=== PATIENT | male | born 1945 | race Caucasian/White ===

== ENCOUNTER 2020-05-22 10:11 | Emergency (ER) | payer OTHER, SELFPAY ==
[2020-05-22] VITALS (8 sets, daily range): BP systolic 133–164; BP diastolic 65–84; PULSE 57–75; RESP 16–24; TEMP 36.8; O2SAT 99–100
--- NOTE | ~2020-05-22 | CT_ITS ---
EXAMINATION: CT brain wo con EXAM DATE: 05/22/2020 12:05 INDICATION: Dizziness. Elevated lipase. TECHNIQUE: Spiral CT of the head was performed without contrast. Axial, coronal and sagittal images were reviewed. The dose-length product (DLP) for this examination was 605.33 mGy-cm. The exposure w as tailored according to patient size, and iterative reconstruction (ASIR) was used as additional dos e reduction technique. Comparison is made to prior examination from 01/15/2019. FINDINGS: There is no acute intraparenchymal hemorrhage. No evidence of intraparenchymal brain mass lesion. No evidence of acute infarction. Please note that initial head CT has limited sensitivity f or small or acute infarctions. There is mild periventricular and subcortical hypodensity, nonspecific but probably related to small vessel ischemic disease. There is mild prominence of the sulci and v entricles related to cerebral atrophy. There is intracranial carotid arteriosclerosis. There are n o extra-axial collections. There is no mass effect or midline shift. The orbits are unremarkable. At the vertex just left of midline there is a soft tissue growth along the scalp which appears to be sessile, measuring about 1.2 cm in diameter. This appears new compared to prior exam. Recommend clini berny correlation to evaluate possibility of skin cancer. The visualized sinuses and mastoid air cells are well aerated. IMPRESSION: 1. Interval development of vertex scalp growth; recommend clinical correlation for possible melanoma or squamous cell cancer. 2. Chronic age related findings. Reviewed, dictated and finalized at location A.
--- NOTE | ~2020-05-22 | XR_ITS ---
EXAMINATION: XR chest 1V portable EXAM DATE: 05/22/2020 11:22 INDICATION: Dizziness. Hypertension. TECHNIQUE: Portable AP frontal chest x-ray was obtained. Comparison is made to prior examination from 01/15/2019. FINDINGS: The lungs are clear. There are no pleural effusions. The cardiomediastinal silhouette is within normal limits. There is no pneumothorax suspected. Patient has diffuse idiopathic skeletal h yperostosis (DISH). IMPRESSION: No acute cardiopulmonary findings. Reviewed, dictated and finalized at location A.
--- NOTE | ~2020-05-22 | CT_ITS ---
EXAMINATION: CT abdomen pelvis wo con EXAM DATE: 05/22/2020 12:05 INDICATION: Elevated lipase. TECHNIQUE: Spiral CT of the abdomen and pelvis was performed without contrast. Axial, coronal and s agittal images were reviewed. The dose-length product (DLP) for this examination was 513.40 mGy-cm. The exposure was tailored according to patient size (auto mA exposure control), and iterative recons truction (ASIR) was used as additional dose reduction technique. There is no prior study for compari son. FINDINGS: The liver, spleen, adrenal glands and pancreas are unremarkable. Gallbladder is unremarkab le. No biliary obstruction. There is left inferior calyceal stone measuring 9 mm. There is a right- sided pelvic kidney. There is moderate bilateral renal cortical thinning. No obstructive nephropathy. The prostate is unremarkable. The bladder is unremarkable. There is no retroperitoneal or pelvic lymphadenopathy. There is mild scattered arteriosclerotic disease. The appendix is not positively visualized. There is no pericecal inflammatory change to suggest appe ndicitis. There is extensive descending colonic diverticulosis. There is no adjacent inflammatory ch aureliano to suggest diverticulitis. There is large duodenal diverticulum without adjacent inflammation. There is expected amount of colonic stool. No free intraperitoneal gas. The heart is normal in si ze. There are no pericardial or pleural effusions. The lung bases are unremarkable. There are no o steoblastic or osteolytic lesions identified. IMPRESSION: 1. No acute intra-abdominal findings. 2. Colonic diverticulosis. 3. Left nephrolithiasis. 4. Right pelvic kidney. Reviewed, dictated and finalized at location A.
--- NOTE | 2020-05-22 10:46 | ECG_ITS ---
Measurements Intervals [place] Rate: 63 P: 61 VT: 239 QRS: -28 QRSD: 114 T: 27 QT: 460 QTc: 474 Interpretive Statements SINUS RHYTHM WITH FIRST DEGREE AV BLOCK VENTRICULAR PREMATURE COMPLEXES INTRAVENTRICULAR CONDUCTION DELAY CANNOT RULE OUT SEPTAL INFARCT, AGE INDETERMINATE NONSPECIFIC ST & T-WAVE ABNORMALITY- DIFFUSE LEADS ABNORMAL ECG Electronically Signed On 05-22-2020 16:53:19 CDT by Mynor Hewitt D.O.
[2020-05-22 11:08] LABS: Basophils Absolute Auto 0.1 K/mm3 (0.0-0.1); Basophils Percent Auto 0.9 % (0.2-1.2); Eosinophils Absolute Auto 0.5 K/mm3 (0-0.3); Eosinophils Percent Auto 3.9 % (0-4.4); Hematocrit 40.6 % (42.0-52.0); Immature Granulocyte Percent A 0.8 % (0-0.5); Lymphocytes Absolute Auto 3.43 K/mm3 (0.9-3.2); Lymphocytes Percent Auto 28.4 % (18.3-44.2); Mean Corpuscular HGB Conc 34.5 g/dl (32-36); Mean Corpuscular Hemoglobin 28.9 pg (26-34); Mean Corpuscular Volume 83.9 fl (80-100); Mean Platelet Volume 9.5 fl (7.4-10.4); Monocytes Absolute Auto 0.5 K/mm3 (0.1-0.6); Monocytes Percent Auto 4.4 % (2.6-8.5); Neutrophils Absolute Auto 7.4 K/mm3 (1.3-6.7); Neutrophils Percent Auto 61.6 % (45.5-73.1); Platelet Count Result 324 k/mm3 (150-375); Red Blood Count 4.84 M/mm3 (4.6-6.20); Red Cell Distribution Width 13.4 % (11.5-14.5); White Blood Count 12.1 K/mm3 (4.5-10.0)
[2020-05-22 11:19] LABS: Anion Gap 12 mmol/L (8-16); Blood Urea Nitrogen 42 mg/dL (9-20); Calcium 9.7 mg/dL (8.4-10.2); Carbon Dioxide 24 mmol/L (22-30); Chloride 106 mmol/L (98-107); Estimated CRCL calculation 20 ml/min; Estimated Glomerular Filt Rate 25; Glucose 129 mg/dL (75-110); Potassium 4.2 mmol/L (3.4-5.0); Sodium 142 mmol/L (137-145)
[2020-05-22] MEDS: SODIUM CHLORIDE 0.9% IV 500 ML 999 ML IV CONT (11:24)
[2020-05-22 11:25] LABS: INR 0.9; Partial Thromboplastin Time 28.2 SECONDS (22.3-36.8); Prothrombin Time 12.2 Seconds (11.1-14.7)
[2020-05-22 11:29] LABS: Alanine Aminotransferase 21 U/L (4-50); Albumin Level 4.6 g/dL (3.5-5.1); Alkaline Phosphatase 92 U/L (38-126); Aspartate Amino Transferase 24 U/L (17-59); Bilirubin,Total 0.7 mg/dL (0.2-1.3); Lipase 593 U/L (23-300)
[2020-05-22 11:38] LABS: Troponin I < 0.012 ng/mL (0.000-0.034)
--- NOTE | 2020-05-22 11:58 | PC.NURSE ---
pt to ct at this time per stretcher.
--- NOTE | 2020-05-22 13:49 | ED.DIZZY ---
HPI - Dizziness General Chief Complaint: Dizziness Stated Complaint: dizzy Time Seen by Provider: 05/22/20 10:48 Source: patient and family Mode of arrival: ambulatory Limitations: no limitations History of Present Illness HPI Narrative: Patient is a 74-year-old male who presents to emergency department for evaluation of dizziness that has mild in nature intermittently worsens with certain activities such as standing patient notes he feels slightly off balance symptoms have persisted since yesterday patient denies similar occurrence in the past any injury or trauma or recent illness. On arrival patient in the room in no distress denying any pain Related Data Home Medications Medication Instructions Recorded Confirmed amlodipine 5 mg PO DAILY 05/22/20 aspirin 81 mg PO DAILY 05/22/20 clopidogrel 75 mg PO DAILY 05/22/20 glipizide 5 mg PO DAILY 05/22/20 losartan 50 mg PO DAILY 05/22/20 losartan-hydrochlorothiazide 1 tablet PO DAILY 05/22/20 pravastatin 10 mg PO DAILY 05/22/20 Allergies Allergy/AdvReac Type Severity Reaction Status Date / Time poison felicia extract Allergy Mild RASH Verified 05/22/20 11:23 Iodinated Contrast Media Allergy Unknown Unknown Verified 05/22/20 11:23 iodine Allergy Unknown Unknown Verified 05/22/20 11:23 Review of Systems Review of Systems: All systems reviewed & are unremarkable except as noted in HPI and below PMFSH Family History Family History (Updated 03/16/16 @ 23:19 by DOCTOR UNKNOWN) Father Hypertension Family history of diabetes mellitus in first degree relative Mother Family history of Alzheimer's disease Social History Social History Smoking status: Never smoker Alcohol intake: never Exam Narrative: Exam Narrative: GENERAL: Well-appearing, well-nourished, and in no acute distress. HEAD: Normocephalic, atraumatic. EYES: PERRLA and EOMI. ENT: Nares clear, no rhinorrhea or epistaxis. Mucous membranes moist. Oropharynx without tonsillar hypertrophy exudate or other lesions. Bilateral TMs nonerythematous nonbulging NECK: Supple. No adenopathy or masses. CHEST: Clear to auscultation. No respiratory distress. No wheezes rales or rhonchi HEART: Regular rate and rhythm. No murmur heard. Normal peripheral pulses. ABDOMEN: Soft, nontender, nondistended EXTREMITIES: Normal range of motion. No edema. SKIN: Warm, dry, no rash. NEURO: No focal deficits. Alert and oriented x3. Cranial nerves II through XII grossly intact. Normal speech and gait. Motor and sensory intact and symmetrical in the extremities. Cerebellar intact. PSYCH: Normal mood and affect. Course Course Emergency Course: Patient in the room at this time aware of case findings treatment plan and diagnosis agreeing to follow-up as directed or to return if symptoms worsen or concerns. Patient was able to ambulate without difficulty no high risk changes in the blood work or imaging patient notes he has follow-up on Saturday for the skin lesion seen on CAT scan involving the scalp. Patient felt better after hydration Vital Signs Vital signs: Vital Signs Temperature 98.2 F 05/22/20 10:15 Pulse Rate 70 05/22/20 10:15 Respiratory Rate 16 05/22/20 10:15 Blood Pressure 149/73 H 05/22/20 10:15 Pulse Oximetry 99 05/22/20 10:15 Temperature 98.2 F 05/22/20 10:15 Pulse Rate 75 05/22/20 13:34 Respiratory Rate 17 05/22/20 13:34 Blood Pressure 158/75 H 05/22/20 13:34 Pulse Oximetry 99 05/22/20 13:34 MDM - Dizziness MDM Narrative Medical decision making narrative: Patient in the room in no distress aware of case findings treatment plan and diagnosis agreeing to follow-up as directed for his symptoms unsure as to the etiology of his dizziness felt to be low likelihood for acute coronary syndrome patient is without chest pain patient felt to be unlikely for CVA although he does have risk factors for coronary artery disease and s
== END 2020-05-22 14:14 | disposition home or self-care (01) ==
PROVIDERS: Emergency Medicine Emergency Medical Services; Emergency Provider Emergency Medicine; PCP Family Medicine
DX: R42 Dizziness and giddiness (principal); Z79.82 Long term (current) use of aspirin; Z79.84 Long term (current) use of oral hypoglycemic drugs; I44.0 Atrioventricular block, first degree; I49.3 Ventricular premature depolarization; I45.89 Other specified conduction disorders; R94.31 Abnormal electrocardiogram [ECG] [EKG]; K57.90 Diverticulosis of intestine, part unspecified, without perforation or abscess without bleeding; N20.0 Calculus of kidney
CPT/HCPCS: 36415; 70450; 71045; 74176; 80048; 80076; 83690; 84484; 85025; 85610; 85730; 93005; 96360; 99284; J7040

== ENCOUNTER 2021-02-02 16:19 | Observation (INO) | payer OTHER, SELFPAY ==
--- NOTE | ~2021-02-02 | XR_ITS ---
XR abdomen/kub 1V DATE: 02/02/2021 18:24 INDICATION: Hematuria TECHNIQUE: AP projection, 2 views COMPARISON: 02/02/2021 KUB FINDINGS: No evidence of bowel obstruction. The psoas shadows are intact. No visceromegaly is evident . Possible faint calcified calculus at left ureterovesical junction IMPRESSION: Possible faint calcified calculus at left ureterovesical junction Reviewed, dictated and finalized at Location A. Reviewed, dictated and finalized at location A.
--- NOTE | ~2021-02-02 | XR_ITS ---
XR chest 2V DATE: 02/02/2021 18:24 INDICATION: Hypertension. Congestive heart failure. Diabetes. TECHNIQUE: PA and lateral views COMPARISON: 05/22/2020 portable AP chest 01/15/2019, 10/07/2005 portable AP chest FINDINGS: Normal heart size. Coronary artery calcification. Aortic arch calcification. No hilar or me diastinal enlargement is evident. No pulmonary infiltrate or consolidation, pleural effusion or pulmo nary vascular congestion or pneumothorax. Diffuse idiopathic skeletal hyperostosis of the thoracic spine. Left rotator cuff atrophy. IMPRESSION: No active cardiopulmonary disease Aortic and coronary atherosclerotic calcification Reviewed, dictated and finalized at location A.
--- NOTE | ~2021-02-02 | XR_ITS ---
EXAMINATION: XR retrograde pyelo w/stent LT EXAM DATE: 02/03/2021 11:04 INDICATION: Right-sided retrograde, left-sided stent. Left UVJ stone. TECHNIQUE: Fluoroscopy used during XR retrograde pyelo w/stent LT performed by Dr. Jourdan Seymour MD, urologist. The radiologist Wyatt Ann M.D. dictating this report of the image(s) available wa s not present for the procedure. Total fluoroscopic time of 26 seconds. The DAP for this procedure was 452 radcm2. A total of 45 images sent to PACS from the exam. Cine run(s) available for review. FINDINGS: Right ureter was cannulated, injected. This led to a pelvic kidney. No hydronephrosis or c yst ureteral strictures. Final 2 images demonstrate a left double-J ureteral stent in position. Corre late with procedure note. IMPRESSION: Right pelvic kidney. Left stent in position. Reviewed, dictated and finalized at location B.
--- NOTE | ~2021-02-02 | CT_ITS ---
EXAMINATION: CT abdomen pelvis wo con DATE: 02/02/2021 18:16 INDICATION: Hematuria, dysuria for several weeks TECHNIQUE: Computed tomography (CT) of the abdomen and pelvis was performed without intravenous contr ast. Automated exposure control and iterative reconstruction technique were employed. Exam dose: 397 .55 mGy-cm total exam DLP. COMPARISON: 02/02/2021 KUB 05/22/2020 CT abdomen pelvis noncontrast examination FINDINGS: The lung bases are clear of consolidation. Normal heart size. No pericardial or pleural eff usion. Small sliding hiatal hernia. The liver, gallbladder, bile ducts, pancreas, pancreatic duct and spleen are unremarkable. Normal morphology of the adrenal glands. Approximately 4 x 7 mm left ureteral vesicle junction calculus with prominent left hydroureteronephro sis. Right pelvic kidney. The urinary bladder is unremarkable. There is prostate enlargement and calcifica tions. Abdominal aortic calcification but no aneurysm. No intraperitoneal or retroperitoneal or pelvic mass lesion or adenopathy or ascites. Small bilateral fat-containing inguinal hernias. Numerous diverticula of left and right colon; no CT evidence of diverticulitis. No bowel obstruction, bowel wall thickening, pneumatosis or intraperitoneal free air. Prominent degenerative spurring of the lumbar spine and multilevel degenerative disc disease, most pr onounced at L5-S1. No suspicious osteolytic or osteoblastic lesions are detected. IMPRESSION: 4 x 7 mm left ureterovesical junction calculus with prominent proximal left hydrouretero nephrosis Diverticulosis of the colon Small sliding hiatal hernia Small bilateral fat-containing inguinal hernias Reviewed, dictated and finalized at Location A. Reviewed, dictated and finalized at location A. IMPRESSION: 4 x 7 mm left ureterovesical junction calculus with prominent prox imal left hydroureteronephrosis Diverticulosis of the colon Small sliding hiatal hernia Small bilateral fat-containing inguinal hernias
[2021-02-02 16:35] VITALS: BP 168/79; PULSE 71; RESP 15; TEMP 36.9; O2SAT 97
--- NOTE | 2021-02-02 17:06 | ED.RECABL ---
HPI - Recheck/Abnormal Lab/Rx General Chief Complaint: Recheck/Abnormal Lab/Rx Stated Complaint: kidneys arent working right Time Seen by Provider: 02/02/21 16:39 Source: patient, RN notes reviewed and old records reviewed Mode of arrival: ambulatory Limitations: no limitations History of Present Illness HPI narrative: This is a 75 year old male with history of hypertension, DM, CAD s/p stent, and hyperlipidemia who presents for evaluation of kidney disease. Patient states he had routine labs performed by his PCP this week, and he was called today to be told he needed to come to ER. He states he has known kidney stone. His only complaint is burning with urination at end of his stream that has been occurring for 2 weeks. He denies hematuria, nausea, vomiting, fever, hematuria, abdominal pain, back pain or urinary retention. He does note that his water pill was discontinued 2 weeks ago due to kidney failure. He denies any worsening swelling or shortness of breath. Related Data Home Medications Medication Instructions Recorded Confirmed amlodipine 10 mg PO DAILY 05/22/20 02/02/21 aspirin 81 mg PO DAILY 05/22/20 02/02/21 clopidogrel 75 mg PO DAILY 05/22/20 02/02/21 glipizide 5 mg PO DAILY 05/22/20 02/02/21 pravastatin 10 mg PO DAILY 05/22/20 02/02/21 pyridoxine (vitamin B6) 50 mg PO DAILY 02/02/21 02/02/21 Allergies Allergy/AdvReac Type Severity Reaction Status Date / Time poison felicia extract Allergy Mild RASH Verified 02/02/21 16:38 Iodinated Contrast Media Allergy Unknown Unknown Verified 02/02/21 16:38 iodine Allergy Unknown Unknown Verified 02/02/21 16:38 Review of Systems Review of Systems: All systems reviewed & are unremarkable except as noted in HPI and below PMFSH Past Medical History Medical History (Updated 02/02/21 @ 20:21 by Lisa Sanches MD) CAD (coronary artery disease) Chronic kidney disease Diabetes mellitus Hyperlipidemia Hypertension Surgical History Surgical History (Updated 02/02/21 @ 17:11 by Lisa Sanches MD) History of appendectomy History of coronary artery stent placement Family History Family History (Updated 03/16/16 @ 23:19 by DOCTOR UNKNOWN) Father Hypertension Family history of diabetes mellitus in first degree relative Mother Family history of Alzheimer's disease Social History Social History Smoking status: Former smoker Tobacco type: pipe Additional smoking assessment comments: occasional pipe smoking when pt was around 19 years old, no current use Alcohol intake: never Substance use: never Gender identity (if verbalized by the patient): Male Spiritual care concerns: No Exam Narrative: Exam Narrative: GENERAL: Well-appearing, well-nourished, and in no acute distress. HEAD: Normocephalic, atraumatic EYES: PERRLA and EOMI, conjunctiva clear without discharge THROAT:Mucous membranes moist, Oropharynx normal without erythema, exudate, peritonsillar swelling or fluctuance NECK: Supple, without lymphadenopathy or mass RESPIRATORY: No respiratory distress, Airway patent, Respirations non-labored, Clear to auscultation without rales, rhonchi or wheeze HEART: Regular rate and rhythm. No murmur heard. Normal peripheral pulses. ABDOMEN: Soft, nontender, nondistended, normal active bowel sounds. No masses. No rebound or guarding, No organomegaly. EXTREMITIES: No edema, normal strength with full range of motion. SKIN: Warm, dry, normal color without rash NEURO: Alert and oriented x3. CN 2-12 grossly intact. No focal deficits. PSYCH: Normal mood and affect. Const: General: alert Course Reevaluation(s) Reevaluation #1: I discussed wit patient that he will be admitted due to having obstructing ureteral stone with worsening kidney function Date: 02/02/21 Time: 20:20 Consultations Consultation #1: I discussed case with DR. Dillon with urology. He agrees to consult on pat
[2021-02-02 17:07] LABS: Basophils Absolute Auto 0.1 K/mm3 (0.0-0.1); Basophils Percent Auto 0.7 % (0.2-1.2); Eosinophils Absolute Auto 0.2 K/mm3 (0-0.3); Eosinophils Percent Auto 2.3 % (0-4.4); Hematocrit 33.7 % (42.0-52.0); Hemoglobin 11.1 g/dL (14.0-18.0); Immature Granulocyte Absolute 0.12 K/mm3 (0.00-0.031); Immature Granulocyte Percent A 1.2 % (0-0.5); Lymphocytes Absolute Auto 2.27 K/mm3 (0.9-3.2); Mean Corpuscular HGB Conc 32.9 g/dl (32-36); Mean Corpuscular Hemoglobin 27.5 pg (26-34); Mean Corpuscular Volume 83.6 fl (80-100); Monocytes Absolute Auto 0.6 K/mm3 (0.1-0.6); Monocytes Percent Auto 5.8 % (2.6-8.5); Neutrophils Absolute Auto 6.6 K/mm3 (1.3-6.7); Platelet Count Result 347 k/mm3 (150-375); Red Blood Count 4.03 M/mm3 (4.6-6.20); Red Cell Distribution Width 13.4 % (11.5-14.5); White Blood Count 9.9 K/mm3 (4.5-10.0)
[2021-02-02 17:17] LABS: Alanine Aminotransferase 13 U/L (4-50); Albumin Level 3.9 g/dL (3.5-5.1); Alkaline Phosphatase 72 U/L (38-126); Anion Gap 12 mmol/L (8-16); Aspartate Amino Transferase 24 U/L (17-59); Bilirubin,Total 0.3 mg/dL (0.2-1.3); Blood Urea Nitrogen 47 mg/dL (9-20); Calcium 8.7 mg/dL (8.4-10.2); Carbon Dioxide 17 mmol/L (22-30); Chloride 110 mmol/L (98-107); Estimated CRCL calculation 13 ml/min; Estimated Glomerular Filt Rate 15; Glucose 144 mg/dL (75-110); Potassium 3.8 mmol/L (3.4-5.0); Sodium 139 mmol/L (137-145)
[2021-02-02 17:35] LABS: Add Urine Microscopic? YES; Appearance Urine Clear (Clear); Bacteria Urine Trace /hpf; Bilirubin Urine Negative (Negative); Blood Urine 2+ (Negative); Color Urine Straw (Yellow); Glucose Urine UA 1+ mg/dL (Negative); Ketones Urine Negative (Negative); Leukocyte Esterase Ur 2+ LEU/UL (Negative); Mucus Urine Rare /lpf; Nitrate Urine Negative (Negative); Protein Urine 3+ mg/dL (Negative); Squamous Epithelial Cell Urine Rare /hpf (Few); Urobilinogen Urine Negative mg/dL (<2.0); WBC Urine 21-30 /hpf
[2021-02-02] MEDS: SODIUM CHLORIDE 0.9% IV 500 ML 999 ML IV CONT (17:56)
[2021-02-02 18:08] LABS: Alveolar/Arterial O2 Gradient 22.6 mmHg; Base Excess ABG -5.3 mEq/l (+/-2.0); Carboxyhemoglobin 0.3 % THb (0-2.0); Fractional Inspired Oxygen 21 %; HCO3 ABG 16.9 mEq/l (22.0-26.0); Methemoglobin ABG 0.2 %THb (0-1.5); Oxygen Content ABG 15.6 %vol (16.0-22.0); Oxygen Saturation ABG 97.9 % (95.0-100.0); Oxyhemoglobin 96.5 % THb (90.0-100.0); PO2 ABG 98.6 mmHg (80.0-100.0); Total Hemoglobin 11.4 g/dL (12.0-18.0); pH ABG 7.469 (7.350-7.450)
[2021-02-02 18:10] LABS: Device ROOM AIR; PCO2 ABG 23.8 mmHg (35.0-45.0); Site Drawn LEFT BRACHIAL
--- NOTE | 2021-02-02 18:10 | PC.NURSE ---
Pt to CT.
[2021-02-02 18:39] VITALS: BP 160/71; PULSE 72; RESP 15; O2SAT 99
[2021-02-02 20:17] VITALS: BP 157/71; PULSE 66; RESP 16; TEMP 36.9; O2SAT 99
[2021-02-02] MEDS: TAMSULOSIN HCL 0.4 MG CAPSULE PO (20:19)
[2021-02-02 21:14] VITALS: BP 170/72; PULSE 70; RESP 18; O2SAT 98
[2021-02-02 22:13] VITALS: BP 175/89; PULSE 87; RESP 16; O2SAT 100
[2021-02-02 22:18] VITALS: BP 177/64; PULSE 72; RESP 18; TEMP 36.6; O2SAT 100; BMI 25.5
--- NOTE | 2021-02-02 22:40 | PC.NURSE ---
This patient, Dayron Moser, was admitted to [facility] Surg Room 321-01. Patient/family oriented to hospital policies and general routines including ID bracelet, bed and alarms, visiting hours, pain management, procedures, bathroom and other care routines, personal items, smoking policy, room service/diet, and visiting hours. Information on how to activate the Rapid Response Team has been discussed. Patient/Family are encouraged to report perceived risks to care and to ask questions if they do not understand what they are told or what they should do.
[2021-02-02] MEDS: SODIUM CHLORIDE 0.9% IV 1,000 ML 75 ML IV CONT (23:05)
[2021-02-03] VITALS (12 sets, daily range): BP systolic 110–161; BP diastolic 58–67; PULSE 60–78; RESP 16–20; TEMP 36.4–37; O2SAT 98–100
--- NOTE | 2021-02-03 06:36 | PM.IMHP ---
H&P: HPI History of Present Illness Date/Time: 02/03/21 05:25 Chief Complaint: Kidneys not working right Narrative: 75-year-old male with past medical history of chronic kidney disease, diabetes, hypertension who presented to the ER after he had routine labs performed earlier in the week that demonstrated worsening kidney function. The patient denies any difficulty with urination. He has noticed a little bit dysuria at the end of his urinary stream over the last 3 or 4 days. He has not had any fevers or chills. His urine has not been darker. He denies any hematuria. He does have a distant history of kidney stones that he passed on his own. He has not had any flank pain. He denies any fevers or chills. He has to get up to urinate approximately 2 times a night at most. He denies any difficulty starting or stopping his urinary stream. He has had a good appetite. He has not been taking any NSAIDs. His hydrochlorothiazide was discontinued 2 weeks ago due to his kidney function. He denies any worsening shortness of breath. He has been having any increased swelling. He denies any chest pain. Review of Systems Review of Systems: Narrative: 12 systems were reviewed with pertinent positives and negatives per HPI. Except as documented in the HPI, all other systems were reviewed and are negative. [facility] Past Medical History Medical History (Updated 02/03/21 @ 06:49 by Radha Pardo DO) CAD (coronary artery disease) Cataracts, both eyes Maturing Chronic kidney disease, stage 4 (severe) Baseline creatinine around 2.5 Diabetes mellitus Most recent hemoglobin A1c between 6 and 7 according to patient report Hyperlipidemia Hypertension Surgical History Surgical History (Updated 02/03/21 @ 06:47 by Radha Pardo DO) History of coronary artery stent placement 6 stents placed in 2004 3 stents placed in [address] Michael Rodrigues History of tonsillectomy and adenoidectomy Family History Family History (Updated 03/16/16 @ 23:19 by DOCTOR UNKNOWN) Father Hypertension Family history of diabetes mellitus in first degree relative Mother Family history of Alzheimer's disease Social History Social History Smoking status: Former smoker Tobacco type: pipe Additional smoking assessment comments: occasional pipe smoking when pt was around 19 years old, no current use Alcohol intake: never Substance use: never Gender identity (if verbalized by the patient): Male Spiritual care concerns: No Meds Home Medications and Allergies Home Medications Medication Instructions Recorded Confirmed Type amlodipine 10 mg PO DAILY 05/22/20 02/02/21 History aspirin 81 mg PO DAILY 05/22/20 02/02/21 History clopidogrel 75 mg PO DAILY 05/22/20 02/02/21 History glipizide 5 mg PO DAILY 05/22/20 02/02/21 History pravastatin 10 mg PO DAILY 05/22/20 02/02/21 History pyridoxine (vitamin B6) 50 mg PO DAILY 02/02/21 02/02/21 History Allergies Allergy/AdvReac Type Severity Reaction Status Date / Time poison felicia extract Allergy Mild RASH Verified 02/02/21 16:38 Iodinated Contrast Media Allergy Unknown Unknown Verified 02/02/21 16:38 iodine Allergy Unknown Unknown Verified 02/02/21 16:38 Vital Signs Vital Signs - 24 hr 02/02/21 16:35 02/02/21 18:39 02/02/21 20:17 Temperature 98.5 F 98.4 F Pulse Rate 71 72 66 Respiratory Rate 15 15 16 Blood Pressure 168/79 H 160/71 H 157/71 H Pulse Oximetry 97 99 99 02/02/21 21:14 02/02/21 22:13 02/02/21 22:18 Temperature 97.9 F Pulse Rate 70 87 72 Respiratory Rate 18 16 18 Blood Pressure 170/72 H 175/89 H 177/64 H Pulse Oximetry 98 100 100 02/03/21 05:32 Temperature 98.4 F Pulse Rate 78 Respiratory Rate 18 Blood Pressure 151/66 H Pulse Oximetry 100 H&P: Results Labs Labs: Laboratory Tests 02/03/21 06:09 02/02/21 02/02/21 02/02/21 17:00 17:00 17:17 WBC 9.9 RBC 4.03 L
[2021-02-03 06:41] LABS: Basophils Absolute Auto 0.1 K/mm3 (0.0-0.1); Basophils Percent Auto 0.6 % (0.2-1.2); Eosinophils Absolute Auto 0.3 K/mm3 (0-0.3); Eosinophils Percent Auto 3.2 % (0-4.4); Hemoglobin 10.8 g/dL (14.0-18.0); Immature Granulocyte Absolute 0.08 K/mm3 (0.00-0.031); Immature Granulocyte Percent A 0.8 % (0-0.5); Lymphocytes Absolute Auto 2.62 K/mm3 (0.9-3.2); Lymphocytes Percent Auto 26.4 % (18.3-44.2); Mean Corpuscular HGB Conc 32.7 g/dl (32-36); Mean Corpuscular Hemoglobin 27.3 pg (26-34); Mean Corpuscular Volume 83.3 fl (80-100); Mean Platelet Volume 8.8 fl (7.4-10.4); Monocytes Absolute Auto 0.5 K/mm3 (0.1-0.6); Neutrophils Absolute Auto 6.4 K/mm3 (1.3-6.7); Platelet Count Result 331 k/mm3 (150-375); Red Blood Count 3.96 M/mm3 (4.6-6.20); Red Cell Distribution Width 13.2 % (11.5-14.5); White Blood Count 9.9 K/mm3 (4.5-10.0)
[2021-02-03 06:59] LABS: Alanine Aminotransferase 12 U/L (4-50); Albumin Level 3.6 g/dL (3.5-5.1); Alkaline Phosphatase 72 U/L (38-126); Anion Gap 11 mmol/L (8-16); Aspartate Amino Transferase 20 U/L (17-59); Bilirubin,Total 0.3 mg/dL (0.2-1.3); Blood Urea Nitrogen 39 mg/dL (9-20); Calcium 8.7 mg/dL (8.4-10.2); Carbon Dioxide 19 mmol/L (22-30); Chloride 114 mmol/L (98-107); Estimated CRCL calculation 14 ml/min; Estimated Glomerular Filt Rate 17; Glucose 101 mg/dL (75-110); Potassium 3.8 mmol/L (3.4-5.0); Sodium 144 mmol/L (137-145)
--- NOTE | 2021-02-03 07:27 | WPDURCON ---
Assessment and Plan Assessment and plan (1) Pelvic kidney: Code(s): Q63.2 - Ectopic kidney Status: Acute (2) Acute kidney injury superimposed on CKD: Code(s): N17.9 - Acute kidney failure, unspecified; N18.9 - Chronic kidney disease, unspecified Status: Acute (3) Calculus of distal left ureter: Code(s): N20.1 - Calculus of ureter Status: Acute Assessment and Plan: Left ureteroscopy with laser lithotripsy, stone extraction and stent placement. I will also do a right retrograde pyelogram at that time to ensure no pathology with his right pelvic kidney/collecting system and ureter. Urology Consult Note HPI Date Seen: 02/03/21 Requesting Physician: Radha Pardo DO Primary Care Provider: Balwinder Peter, DO Consult Narrative Narrative: Dayron Moser is a 75 year old male without prior significant urological history without history urolithiasis. He presents to the emergency department after having been found to have worsening kidney function stone outside lab. He has had mild dysuria but no significant renal colic. He denies fevers chills or gross hematuria. Review of Systems Cardiovascular: Cardiovascular: Denies chest pain, Denies lightheadedness, Denies palpitations and Denies dyspnea Respiratory: Respiratory: Denies dyspnea Gastrointestinal: Gastrointestinal: Denies diarrhea, Denies nausea and Denies vomiting Genitourinary: Genitourinary: Denies hematuria and Denies dysuria Endocrine: Endocrine: Denies palpitations PMFSH Past Medical History Medical History CAD (coronary artery disease) Cataracts, both eyes Maturing Chronic kidney disease, stage 4 (severe) Baseline creatinine around 2.5 Diabetes mellitus Most recent hemoglobin A1c between 6 and 7 according to patient report Diabetic peripheral neuropathy Stocking and glove Hyperlipidemia Hypertension Squamous cell carcinoma of scalp Surgical History Surgical History History of coronary artery stent placement 6 stents placed in 2004 3 stents placed in [address] Michael Rodrigues History of tonsillectomy and adenoidectomy Family History Family History Father Hypertension Family history of diabetes mellitus in first degree relative Mother Family history of Alzheimer's disease Social History Social History Social History: Patient is but lives with his long-term girlfriend. He has a son who is 50 years old and a daughter who is 53 years old. He keeps busy by bowling. Code status: Full code Surrogate decision maker: Juliana (girlfriend) Smoking status: Former smoker Tobacco type: pipe Additional smoking assessment comments: occasional pipe smoking when pt was around 19 years old, no current use Alcohol intake: never Substance use: never Gender identity (if verbalized by the patient): Male Spiritual care concerns: No Meds Home Medications and Allergies Home Medications Medication Instructions Recorded Confirmed Type amlodipine 10 mg PO DAILY 05/22/20 02/02/21 History aspirin 81 mg PO DAILY 05/22/20 02/02/21 History clopidogrel 75 mg PO DAILY 05/22/20 02/02/21 History glipizide 5 mg PO DAILY 05/22/20 02/02/21 History pravastatin 10 mg PO DAILY 05/22/20 02/02/21 History pyridoxine (vitamin B6) 50 mg PO DAILY 02/02/21 02/02/21 History Allergies Allergy/AdvReac Type Severity Reaction Status Date / Time poison felicia extract Allergy Mild RASH Verified 02/02/21 16:38 Iodinated Contrast Media Allergy Unknown Unknown Verified 02/02/21 16:38 iodine Allergy Unknown Unknown Verified 02/02/21 16:38 Vital Signs Vital Signs - 24 hr 02/02/21 16:35 02/02/21 18:39 02/02/21 20:17 Temperature 98.5 F 98.4 F Pulse Rate 7
[2021-02-03] MEDS: amLODIPine BESYLATE 5 MG TABLET 10 MG PO (08:14)
[2021-02-03] MEDS: LACTATED RINGERS 1,000 ML 30 ML IV CONT ×2 (09:10→09:39)
--- NOTE | 2021-02-03 09:15 | PC.NURSE ---
to OR per stretcher. watch and cell phone locked in cabinet in room per patient request
--- NOTE | 2021-02-03 09:37 | WPDANESEPPF ---
Anes - Initial Pre Proc Eval Procedure: Operation Date: 02/03/21 14:15 Proposed Procedures p Cystoscopy,Left Ureteroscopy,Right Retrograde Pyelogram,Left Stone Extraction,Possible Holmium Laser,Possible Stent Placement - Jourdan Seymour MD Date/Time: 02/03/21 09:37 Surgeon: Radha Pardo DO Pre Op Diagnosis: Acute on Chronic Renal Failure,Left Obstructive Ur Patient Data Age: 75 Gender: M Height: 1.65 m Weight: 69.6 kg Last Vital Signs Temp 36.9 C 02/03/21 05:32 Pulse 78 02/03/21 05:32 Resp 18 02/03/21 05:32 BP 151/66 H 02/03/21 05:32 Pulse Ox 100 02/03/21 05:32 Allergies Allergy/AdvReac Type Severity Reaction Status Date / Time poison felicia extract Allergy Mild RASH Verified 02/02/21 16:38 Iodinated Contrast Media Allergy Unknown Unknown Verified 02/02/21 16:38 iodine Allergy Unknown Unknown Verified 02/02/21 16:38 Home Medications Medication Instructions Recorded Confirmed Type amlodipine 10 mg PO DAILY 05/22/20 02/02/21 History aspirin 81 mg PO DAILY 05/22/20 02/02/21 History clopidogrel 75 mg PO DAILY 05/22/20 02/02/21 History glipizide 5 mg PO DAILY 05/22/20 02/02/21 History pravastatin 10 mg PO DAILY 05/22/20 02/02/21 History pyridoxine (vitamin B6) 50 mg PO DAILY 02/02/21 02/02/21 History Laboratory Tests 02/02/21 02/02/21 02/02/21 17:00 17:00 17:17 WBC 9.9 K/mm3 K/mm3 (4.5-10.0) RBC 4.03 M/mm3 L M/mm3 (4.6-6.20) Hgb 11.1 g/dL L g/dL (14.0-18.0) Hct 33.7 % L % (42.0-52.0) MCV 83.6 fl fl (80-100) MCH 27.5 pg pg (26-34) MCHC 32.9 g/dl g/dl (32-36) RDW 13.4 % % (11.5-14.5) Plt Count 347 k/mm3 k/mm3 (150-375) MPV 9.0 fl fl (7.4-10.4) Immature Gran % (Auto) 1.2 % H % (0-0.5) Neut % (Auto) 67.0 % % (45.5-73.1) Lymph % (Auto) 23.0 % % (18.3-44.2) [place] % (Auto) 5.8 % % (2.6-8.5) Eos % (Auto) 2.3 % % (0-4.4) Baso % (Auto) 0.7 % % (0.2-1.2) Lymph # (Auto) 2.27 K/mm3 K/mm3 (0.9-3.2) [place] # (Auto) 0.6 K/mm3 K/mm3 (0.1-0.6) Eos # (Auto) 0.2 K/mm3 K/mm3 (0-0.3) Baso # (Auto) 0.1 K/mm3 K/mm3 (0.0-0.1) Abs Immat Gran (auto) 0.12 K/mm3 H K/mm3 (0.00-0.031) Absolute Neuts (auto) 6.6 K/mm3 K/mm3 (1.3-6.7) Absolute Nucleated RBC 0.0 K/mm3 K/mm3 (0.0-0.012) Nucleated RBC % 0.0 % % (0.0-0.2) Puncture Site ABG pH ABG pCO2 ABG pO2 ABG PO2/FiO2 Ratio ABG HCO3 ABG O2 Saturation ABG O2 Content ABG Base Excess A-a Gradient Oxyhemoglobin Carboxyhemoglobin Methemoglobin Reduced Hemoglobin Total Hemoglobin O2 Delivery Device O2 Liters/Min FiO2 Sodium 139 mmol/L mmol/L (137-145) Potassium 3.8 mmol/L mmol/L (3.4-5.0) Chloride 110 mmol/L H mmol/L (98-107) Carbon Dioxide 17 mmol/L L mmol/L (22-30) Anion Gap 12 mmol/L mmol/L (8-16) BUN 47 mg/dL H mg/dL (9-20) Creatinine 3.90 mg/dL H mg/dL (0.7-1.3) Estim Creat Clear Calc 13 ml/min ml/min Estimated GFR 15 L (59 - ) Glucose 144 mg/dL H mg/dL (75-110) Calcium 8.7 mg/dL mg/dL (8.4-10.2) Total Bilirubin 0.3 mg/dL mg/dL (0.2-1.3) AST 24 U/L U/L (17-59) ALT 13 U/L U/L (4-50) Alkaline Phosphatase 72 U/L U/L (38-126) Total Protein 7.0 g/dL g/dL (6.3-8.2) Albumin 3.9 g/dL g/dL (3.5-5.1) Urine Color Straw (Yellow) Urine Appearance Clear (Clear) Urine pH 6.0 (5.0-9.0) Ur Specific [place] 1.010 (1.001-1.035) Urine P
[2021-02-03 09:39] LABS: Glucose Point of Care 108 mg/dl (65-105)
--- NOTE | 2021-02-03 10:18 | SUR.PREOP ---
1015 pt informed of delay in procedure,also called eleuterio rn floor nurse and informed of delay and pt to stay in preop.
--- NOTE | 2021-02-03 10:25 | WPDHPUPDATE1 ---
History and Physical Update Update Date/Time: 02/03/21 10:25 History and Physical has been reviewed, including an updated exam of the patient. There are NO changes in the patient's condition. Risks, benefits, and alternatives have been discussed and questions answered. Patient agrees to proceed with procedure.
--- NOTE | 2021-02-03 11:01 | W.PM.PROC2 ---
Procedure Note - Detailed Date of Procedure 02/03/21 Pre-op Diagnosis Acute on Chronic Renal Failure, Left Ureteral stone Post-op Diagnosis same Procedure Performed 1. Cystoscopy with right retrograde pyelography 2. Left ureteroscopy with stone extraction and left ureteral stent placement Surgeon Jourdan Seymour MD Anesthesia general Indications Left ureteral stone, RODRIGUE Findings 1. Normal right RPG 2. 7mm left UVJ stone Description of Procedure Patient is brought to the operative suite where he has prepped draped in routine sterile fashion while in a dorsal lithotomy position after the uneventful induction of a general anesthetic. Cystoscopy is undertaken with the 21 F rigid cystoscope. There is no urethral stricture. He has minimal prostatic hyperplasia from [place] is age. The bladder showed slight trabeculation. There is no intravesical foreign body neoplasm. Has an orthotopic ureteral orifice bilaterally. An 8 F bulb tip catheter was used to obtain a right retrograde pyelogram. This shows a pelvic kidney but without apparent obstruction or filling defect to the collecting system. On the left, his 7 mm stone can be seen extruding from the left ureterovesical junction. Was actually able to remove it base simple using a grasping forceps through the cystoscope. I did perform left ureteroscopy to confirm that there was no additional fragments left. Placed a 4.8 F left ureteral stent over a guidewire. The proximal coil of the stent was positioned in the renal pelvis and distal coil in bladder. Scopes wires removed after emptying the patient's bladder. He was taken recovery room good condition Estimated Blood Loss 0 Drains Yes (4.8F left ureteral stent) Packing No Pathology yes (Left ureteral stone) Complications No immediate complications Condition stable Disposition PACU
[2021-02-03 11:20] LABS: Glucose Point of Care 99 mg/dl (65-105)
[2021-02-03] MEDS: PYRIDOXINE HCL 50 MG TABLET PO (12:59)
[2021-02-03] MEDS: ASPIRIN 81 MG CHEWABLE TABLET PO (12:59)
[2021-02-03] MEDS: CLOPIDOGREL BISULFATE 75 MG TABLET PO (12:59)
[2021-02-03] MEDS: PRAVASTATIN SODIUM 10 MG TABLET PO (12:59)
[2021-02-03] MEDS: SODIUM CHLORIDE 0.9% IV 1,000 ML 75 ML IV CONT (13:02)
--- NOTE | 2021-02-03 14:23 | PM.IMPN ---
Progress Note: A&P Assessment and Plan (1) Acute kidney injury superimposed on CKD: Code(s): N17.9 - Acute kidney failure, unspecified; N18.9 - Chronic kidney disease, unspecified Status: Acute Assessment and Plan: Patient presented to ED for evaluation of elevated creatinine on outpatient labs. Cr. 3.9 on arrival improved to 3.6 today. Suspect related to obstructive uropathy, see below. Continue gentle IV fluids, trend renal function and electrolytes daily. Monitor urine output. I am hopeful his Cr will trend down now that the obstruction has been relieved. Anticipate discharge in the next 1-2 days. (2) Calculus of distal left ureter: Code(s): N20.1 - Calculus of ureter Status: Acute Assessment and Plan: Imaging on arrival demonstrated a stone at the left ureterovesical junction with prominent proximal left hydroureteronephrosis. He was evaluated by urology - appreciate input. He is now POD#0 s/p cystoscopy with left ureteral stent placement by Dr. Seymour. (3) Bacteriuria with pyuria: Code(s): R82.71 - Bacteriuria; R82.81 - Pyuria Status: Acute Assessment and Plan: Abnormal urinalysis in the setting of a ureteral stone. Continue empiric IV ceftriaxone with urine culture pending. (4) Diabetes mellitus: Qualifiers: Diabetes mellitus type: type 2 Diabetes mellitus rn long term care insulin use: without group home use Diabetes mellitus complication status: without complication Qualified Code(s): E11.9 - Type 2 diabetes mellitus without complications Code(s): E11.9 - Type 2 diabetes mellitus without complications Status: Chronic Assessment and Plan: Glipizide held due to renal function. Blood sugars are appropriate today. Continue to monitor with accu-cheks and adjust treatment as needed, cover with SSI. (5) CAD (coronary artery disease): Qualifiers: Coronary Disease-Associated Artery/Lesion type: [place] artery [place] vs. transplanted heart: [place] heart Associated angina: without angina Qualified Code(s): I25.10 - Atherosclerotic heart disease of [place] coronary artery without angina pectoris Code(s): I25.10 - Atherosclerotic heart disease of [place] coronary artery without angina pectoris Status: Chronic Assessment and Plan: Stable, no chest pain. Patient describes 9 coronary stents placed between [id number]. Continue plavix, ASA, statin therapy. Subjective Date/time seen: 02/03/21 1230 Interval history: Mr. Moser is a very pleasant 75yo M admitted for acute on chronic renal failure and an obstructing left ureteral stone. He is seen after just returning from cystoscopy with stent placement. He reports feeling well. He only presented to the hospital at the instruction of PCP due to reduced renal function noted on outpatient labs. He reports some dysuria over the last few days but otherwise offers no complaints. Denies chest pain, shortness of breath, abdominal pain, nausea or vomiting. Review of Systems Review of Systems: All systems reviewed & are unremarkable except as noted in HPI and below Exam Narrative: Exam Narrative: General: Male resting comfortably sitting up in bed in no acute distress. HEENT: Normocephalic, EOMI, oral mucosa moist. Cardiovascular: Rate and rhythm are regular. Respiratory: Lungs clear to auscultation bilaterally. Respirations even and non-labored. Tolerating room air. Abdomen: Soft, non-tender, non-distended, bowel sounds present. Extremities: Peripheral pulses intact. No edema or pain to palpation. Neuro: Awake and alert; answering all questions appropriately. No focal neurological deficits. Speech is clear. Objective Data Vital Signs Vital Signs: Last Vital Signs
[2021-02-03 18:00] LABS: Glucose Point of Care 142 mg/dl (65-105)
[2021-02-03 23:03] LABS: Glucose Point of Care 139 mg/dl (65-105)
[2021-02-04 05:37] VITALS: BP 162/64; PULSE 71; RESP 18; TEMP 36.9; O2SAT 98
[2021-02-04] MEDS: SODIUM CHLORIDE 0.9% IV 1,000 ML 75 ML IV CONT (05:53)
[2021-02-04 07:09] LABS: Basophils Percent Auto 0.4 % (0.2-1.2); Eosinophils Absolute Auto 0.2 K/mm3 (0-0.3); Eosinophils Percent Auto 2.2 % (0-4.4); Hematocrit 34.5 % (42.0-52.0); Hemoglobin 11.1 g/dL (14.0-18.0); Immature Granulocyte Absolute 0.07 K/mm3 (0.00-0.031); Immature Granulocyte Percent A 0.7 % (0-0.5); Lymphocytes Absolute Auto 2.19 K/mm3 (0.9-3.2); Lymphocytes Percent Auto 20.7 % (18.3-44.2); Mean Corpuscular HGB Conc 32.2 g/dl (32-36); Mean Corpuscular Volume 83.9 fl (80-100); Monocytes Absolute Auto 0.6 K/mm3 (0.1-0.6); Monocytes Percent Auto 5.7 % (2.6-8.5); Neutrophils Absolute Auto 7.4 K/mm3 (1.3-6.7); Neutrophils Percent Auto 70.3 % (45.5-73.1); Platelet Count Result 339 k/mm3 (150-375); Red Blood Count 4.11 M/mm3 (4.6-6.20); Red Cell Distribution Width 13.2 % (11.5-14.5); White Blood Count 10.6 K/mm3 (4.5-10.0)
[2021-02-04 07:31] LABS: Anion Gap 11 mmol/L (8-16); Blood Urea Nitrogen 39 mg/dL (9-20); Calcium 8.4 mg/dL (8.4-10.2); Carbon Dioxide 18 mmol/L (22-30); Chloride 113 mmol/L (98-107); Estimated CRCL calculation 15 ml/min; Estimated Glomerular Filt Rate 18; Glucose 115 mg/dL (75-110); Potassium 3.8 mmol/L (3.4-5.0); Sodium 142 mmol/L (137-145)
[2021-02-04 08:05] LABS: Glucose Point of Care 114 mg/dl (65-105)
[2021-02-04] MEDS: CLOPIDOGREL BISULFATE 75 MG TABLET PO (08:43)
[2021-02-04] MEDS: amLODIPine BESYLATE 5 MG TABLET 10 MG PO (08:43)
[2021-02-04] MEDS: PYRIDOXINE HCL 50 MG TABLET PO (08:43)
[2021-02-04] MEDS: ASPIRIN 81 MG CHEWABLE TABLET PO (08:43)
[2021-02-04] MEDS: PRAVASTATIN SODIUM 10 MG TABLET PO (08:43)
[2021-02-04 12:05] LABS: Glucose Point of Care 134 mg/dl (65-105)
--- NOTE | 2021-02-04 13:35 | PM.IMPN ---
Progress Note: A&P Assessment and Plan (1) Acute kidney injury superimposed on CKD: Code(s): N17.9 - Acute kidney failure, unspecified; N18.9 - Chronic kidney disease, unspecified Status: Acute Assessment and Plan: Patient presented to ED for evaluation of elevated creatinine on outpatient labs. Cr. 3.9 on arrival slowly improving to 3.4 today. Suspect related to obstructive uropathy, see below. Continue gentle IV fluids, trend renal function and electrolytes daily. Monitor urine output. I am hopeful his Cr will trend down now that the obstruction has been relieved. Anticipate discharge hopefully tomorrow morning. (2) Calculus of distal left ureter: Code(s): N20.1 - Calculus of ureter Status: Acute Assessment and Plan: Imaging on arrival demonstrated a stone at the left ureterovesical junction with prominent proximal left hydroureteronephrosis. He was evaluated by urology - appreciate input. He is now POD#1 s/p cystoscopy with left ureteral stent placement by Dr. Seymour. (3) Bacteriuria with pyuria: Code(s): R82.71 - Bacteriuria; R82.81 - Pyuria Status: Acute Assessment and Plan: Abnormal urinalysis in the setting of a ureteral stone. Urine culture is negative, will stop Rocephin. (4) Diabetes mellitus: Qualifiers: Diabetes mellitus type: type 2 Diabetes mellitus terminal superintendent insulin use: without terminal superintendent use Diabetes mellitus complication status: without complication Qualified Code(s): E11.9 - Type 2 diabetes mellitus without complications Code(s): E11.9 - Type 2 diabetes mellitus without complications Status: Chronic Assessment and Plan: Glipizide held due to renal function. Blood sugars are appropriate today. Continue to monitor with accu-cheks and adjust treatment as needed, cover with SSI. (5) CAD (coronary artery disease): Qualifiers: Coronary Disease-Associated Artery/Lesion type: [place] artery [place] vs. transplanted heart: [place] heart Associated angina: without angina Qualified Code(s): I25.10 - Atherosclerotic heart disease of [place] coronary artery without angina pectoris Code(s): I25.10 - Atherosclerotic heart disease of [place] coronary artery without angina pectoris Status: Chronic Assessment and Plan: Stable, no chest pain. Patient describes 9 coronary stents placed between [id number]. Continue plavix, ASA, statin therapy. Subjective Date/time seen: 02/04/21 1230 Interval history: Mr. Moser is a very pleasant 75yo M admitted for acute on chronic renal failure and an obstructing left ureteral stone now POD#1 s/p left ureteral stent placement. He is feeling well today other than some urinary incontinence he has experienced. Less dysuria today and he notes hematuria is fading. He otherwise offers no complaints and denies chest pain, SOB, nausea or vomiting. Enjoying some lunch at time of my encounter. I called and spoke with his girlfriend, Juliana, on the phone to provide updates per patient's request. Review of Systems Review of Systems: All systems reviewed & are unremarkable except as noted in HPI and below Exam Narrative: Exam Narrative: General: Male resting comfortably sitting on edge of bed finishing lunch in no acute distress. HEENT: Normocephalic, EOMI, oral mucosa moist. Cardiovascular: Rate and rhythm are regular. Respiratory: Lungs clear to auscultation bilaterally. Respirations even and non-labored. Tolerating room air. Abdomen: Soft, non-tender, non-distended, bowel sounds present. Extremities: Peripheral pulses intact. No edema or pain to palpation. Neuro: Awake and alert; answering all questions appropriately. No focal neurological deficits. Speech is clear.
[2021-02-04 14:00] VITALS: BP 158/62; PULSE 66; RESP 20; TEMP 36.2; O2SAT 100
[2021-02-04 17:32] LABS: Glucose Point of Care 133 mg/dl (65-105)
[2021-02-04] MEDS: SODIUM CHLORIDE 0.9% IV 1,000 ML 100 ML IV CONT (18:33)
[2021-02-04 21:37] LABS: Glucose Point of Care 112 mg/dl (65-105)
[2021-02-04 21:56] VITALS: O2SAT 99
[2021-02-04 22:00] VITALS: BP 166/59; PULSE 60; RESP 18; TEMP 37; O2SAT 100
[2021-02-05] MEDS: SODIUM CHLORIDE 0.9% IV 1,000 ML 100 ML IV CONT (04:39)
[2021-02-05 06:00] VITALS: BP 159/70; PULSE 75; RESP 18; TEMP 36.4; O2SAT 100
[2021-02-05 06:38] LABS: Basophils Percent Auto 0.4 % (0.2-1.2); Eosinophils Absolute Auto 0.4 K/mm3 (0-0.3); Eosinophils Percent Auto 3.6 % (0-4.4); Hematocrit 36.3 % (42.0-52.0); Hemoglobin 11.7 g/dL (14.0-18.0); Immature Granulocyte Absolute 0.07 K/mm3 (0.00-0.031); Immature Granulocyte Percent A 0.7 % (0-0.5); Lymphocytes Absolute Auto 3.03 K/mm3 (0.9-3.2); Lymphocytes Percent Auto 30.3 % (18.3-44.2); Mean Corpuscular HGB Conc 32.2 g/dl (32-36); Mean Corpuscular Hemoglobin 27.2 pg (26-34); Mean Corpuscular Volume 84.4 fl (80-100); Mean Platelet Volume 8.9 fl (7.4-10.4); Monocytes Absolute Auto 0.6 K/mm3 (0.1-0.6); Monocytes Percent Auto 5.7 % (2.6-8.5); Neutrophils Absolute Auto 5.9 K/mm3 (1.3-6.7); Neutrophils Percent Auto 59.3 % (45.5-73.1); Platelet Count Result 336 k/mm3 (150-375); Red Cell Distribution Width 13.2 % (11.5-14.5)
[2021-02-05 06:47] LABS: Anion Gap 8 mmol/L (8-16); Blood Urea Nitrogen 31 mg/dL (9-20); Calcium 8.7 mg/dL (8.4-10.2); Carbon Dioxide 21 mmol/L (22-30); Chloride 114 mmol/L (98-107); Estimated CRCL calculation 15 ml/min; Estimated Glomerular Filt Rate 19; Glucose 101 mg/dL (75-110); Potassium 3.6 mmol/L (3.4-5.0); Sodium 143 mmol/L (137-145)
[2021-02-05 08:15] LABS: Glucose Point of Care 91 mg/dl (65-105)
[2021-02-05] MEDS: PRAVASTATIN SODIUM 10 MG TABLET PO (08:27)
[2021-02-05] MEDS: amLODIPine BESYLATE 5 MG TABLET 10 MG PO (08:27)
[2021-02-05] MEDS: ASPIRIN 81 MG CHEWABLE TABLET PO (08:27)
[2021-02-05] MEDS: CLOPIDOGREL BISULFATE 75 MG TABLET PO (08:28)
[2021-02-05] MEDS: PYRIDOXINE HCL 50 MG TABLET PO (08:28)
--- NOTE | 2021-02-05 10:07 | PM.DS ---
DS: Admitting Diagnosis Admitting Diagnosis Admitting Diagnosis: RODRIGUE, kidney stone DS: Discharge Diagnosis Discharge Diagnosis (1) Acute kidney injury superimposed on CKD: Code(s): N17.9 - Acute kidney failure, unspecified; N18.9 - Chronic kidney disease, unspecified Status: Acute Assessment and Plan: Date of Admission 02/02/21 Date of Discharge 02/05/21 Mr. Moser is a very pleasant 75yo gentleman who presented to ED at the recommendation of his PCP for evaluation of elevated creatinine on outpatient labs. Cr. 3.9 on arrival slowly improving. Suspect related to obstructive uropathy, see below. His Cr slowly trending down with IV hydration after cystoscopy and left ureteral stent placement. He is feeling well without complaints and is hemodynamically stable for discharge 02/05/21. (2) Calculus of distal left ureter: Code(s): N20.1 - Calculus of ureter Status: Acute Assessment and Plan: Imaging on arrival demonstrated a stone at the left ureterovesical junction with prominent proximal left hydroureteronephrosis. He was evaluated by urology. He is discharged on POD#2 s/p cystoscopy with left ureteral stent placement by Dr. Seymour. Follow up with Dr Seymour outpatient. (3) Bacteriuria with pyuria: Code(s): R82.71 - Bacteriuria; R82.81 - Pyuria Status: Acute Assessment and Plan: Abnormal urinalysis in the setting of a ureteral stone. Urine culture is negative, will stop Rocephin. (4) Diabetes mellitus: Qualifiers: Diabetes mellitus complication status: without complication Diabetes mellitus terminal makeup operator insulin use: without senior living use Diabetes mellitus type: type 2 Qualified Code(s): E11.9 - Type 2 diabetes mellitus without complications Code(s): E11.9 - Type 2 diabetes mellitus without complications Status: Chronic Assessment and Plan: Stable. (5) CAD (coronary artery disease): Qualifiers: Associated angina: without angina Coronary Disease-Associated Artery/Lesion type: [place] artery [place] vs. transplanted heart: [place] heart Qualified Code(s): I25.10 - Atherosclerotic heart disease of [place] coronary artery without angina pectoris Code(s): I25.10 - Atherosclerotic heart disease of [place] coronary artery without angina pectoris Status: Chronic Assessment and Plan: Stable, no chest pain. Patient describes 9 coronary stents placed between [id number]. Continue plavix, ASA, statin therapy. DS: Summary Hospital Course Hospital Course: See above Time Spent with Patient Time attestation: Total time spent providing and/or coordinating discharge services: 35 minutes Exam Narrative: Exam Narrative: General: Male resting comfortably sitting up in bed in no acute distress. HEENT: Normocephalic, EOMI, oral mucosa moist. Cardiovascular: Rate and rhythm are regular. Respiratory: Lungs clear to auscultation bilaterally. Respirations even and non-labored. Tolerating room air. Abdomen: Soft, non-tender, non-distended, bowel sounds present. Extremities: Peripheral pulses intact. No edema or pain to palpation. Neuro: Awake and alert; answering all questions appropriately. No focal neurological deficits. Speech is clear. DS: Data Data Completed and Pending Pending studies at discharge: Pending at discharge 02/03/21 11:01 Surgical [PTH] Routine Labs on day of discharge: Last Vital Signs Temp 97.6 F 02/05/21 06:00 Pulse 75 02/05/21 06:00 Resp 18 02/05/21 06:00 BP 159/70 H 02/05/21 06:00 Pulse Ox 100 02/05/21 06:00 ITS Impressions Abdomen/Pelvis CT 02/02/21 18:17 IMPRESSION: 4 x 7 mm left ureterovesical junction calculus with prominent proximal left hydroureteroneph
== END 2021-02-05 10:50 | disposition home or self-care (01) ==
LOC: ANHED 20:21 → ANH3MEDSUR 21:06
PROVIDERS: Physician Assistant; Urology; Admitting Provider Internal Medicine; Emergency Provider General Practice; PCP Student in an Organized Health Care Education/Training Program; Visit Provider Internal Medicine
PROC: (CPT 52352; principal; 2021-02-03 14:15)
DX: N17.9 Acute kidney failure, unspecified (principal); N20.1 Calculus of ureter; Q63.2 Ectopic kidney; R82.81 Pyuria; R82.71 Bacteriuria; I12.9 Hypertensive chronic kidney disease with stage 1 through stage 4 chronic kidney disease, or unspecified chronic kidney disease; N18.4 Chronic kidney disease, stage 4 (severe); E11.22 Type 2 diabetes mellitus with diabetic chronic kidney disease; I25.10 Atherosclerotic heart disease of native coronary artery without angina pectoris; Z95.5 Presence of coronary angioplasty implant and graft; Z87.891 Personal history of nicotine dependence; Z79.02 Long term (current) use of antithrombotics/antiplatelets; Z79.84 Long term (current) use of oral hypoglycemic drugs; Z79.82 Long term (current) use of aspirin
CPT/HCPCS: 52332; 52352; 36415; 36600; 71046; 74018; 74176; 74420; 80048; 80053; 81001; 82365; 82375; 82805; 82948; 83050; 83735; 85025; 87086; 88300; 96361; 96365; 99285; A9270; C1769; C1887; C2617; G0378; J0131; J0696; J2370; J2405; J2704; J3010; J7030; J7040; J7120; Q9966

== ENCOUNTER 2021-06-08 11:05 | Outpatient (CLI) | payer OTHER, SELFPAY ==
--- NOTE | ~2021-06-08 | US_ITS ---
EXAMINATION: US renal BI DATE: 06/08/2021 11:57 INDICATION: Chronic kidney disease TECHNIQUE: Multiple ultrasound grayscale images of the kidneys were obtained. COMPARISON: 11/03/2018 FINDINGS: The right kidney is located in the pelvis and measures 7.4 x 4.4 x 5.4 cm. The left kidney measures 9 .8 x 5.1 x 4.6 cm. Lateral mild diffuse increased renal cortical echogenicity consistent with medical renal disease. Bilateral anechoic renal cysts measuring up to 1.9 cm and 1.3 cm in the left kidney a nd 8 mm and 7 mm in the right kidney. There is no hydronephrosis in either kidney. No stones identif ied. The bladder is normal. Prostatomegaly measuring at least 5.4 similar in maximal transaxial dimen king[place]. IMPRESSION: 1. Bilateral renal cysts as well as increased renal cortical echogenicity consistent with medical re nal disease. No hydronephrosis. 2. Prostatomegaly. Reviewed, dictated and finalized at location A. IMPRESSION: 1. Bilateral renal cysts as well as increased renal cortical echogenicity cons istent with medical renal disease. No hydronephrosis. 2. Prostatomegaly.
== END 2021-06-08 11:06 | disposition home or self-care (01) ==
PROVIDERS: PCP Student in an Organized Health Care Education/Training Program; Visit Provider Internal Medicine Nephrology
DX: N18.4 Chronic kidney disease, stage 4 (severe) (principal); N40.0 Benign prostatic hyperplasia without lower urinary tract symptoms; N28.1 Cyst of kidney, acquired
CPT/HCPCS: 76775

== ENCOUNTER 2022-06-07 14:10 | Outpatient (CLI) | payer OTHER, SELFPAY ==
--- NOTE | ~2022-06-07 | US_ITS ---
US renal BI 06/07/2022 15:31 Procedure: Realtime transabdominal ultrasound of the kidneys and bladder. Indication: Chronic kidney disease Comparison: 06/08/2021 Findings: Renal echotexture is normal bilaterally without hydronephrosis, contour deforming mass or r enal calculus. The right kidney measures 7.2 cm and left kidney measures 10.4 cm. Bladder within nor mal limits. There is enlargement of the prostate gland. Impression: 1: Left renal cysts, largest measuring 2.8 cm. 2: Right renal atrophy. 3: Enlarged prostate gland. Reviewed, dictated and finalized at location A. Impression: 1: Left renal cysts, largest measuring 2.8 cm. 2: Right renal atrophy. 3: Enlarged prostate gland.
== END 2022-06-07 14:11 | disposition home or self-care (01) ==
PROVIDERS: PCP Student in an Organized Health Care Education/Training Program; Visit Provider Internal Medicine Nephrology
DX: N18.4 Chronic kidney disease, stage 4 (severe) (principal); N28.1 Cyst of kidney, acquired; N40.0 Benign prostatic hyperplasia without lower urinary tract symptoms
CPT/HCPCS: 76775

== ENCOUNTER 2023-02-04 10:16 | Inpatient (IN) | payer OTHER, SELFPAY ==
[2023-02-04] VITALS (13 sets, daily range): BP systolic 138–193; BP diastolic 55–81; PULSE 48–58; RESP 12–20; TEMP 36.4–36.8; O2SAT 98–100; BMI 23.3
--- NOTE | ~2023-02-04 | US_ITS ---
EXAMINATION: US renal BI DATE: 02/04/2023 16:23 INDICATION: Acute on chronic renal failure TECHNIQUE: Multiple ultrasound grayscale images of the kidneys were obtained. COMPARISON: None. FINDINGS: The right kidney is located in the right hemipelvis and measures 6.2 x 3.3 x 3.1 cm. The left kidney measures 10.0 x 4.8 x 4.8 cm. The kidneys demonstrate normal echogenicity. There are couple anechoic cyst at the left kidney, the largest measuring 2.7 cm in maximal diameter. There is no hydronephrosis in either kidney. No stones identified. The bladder is normal with a right ureteral jet but no left ureteral jets visualized on color Doppler.. IMPRESSION: 1. Atrophic right pelvic kidney. 2. A couple left renal cysts measuring up to 2.7 cm. No hydronephrosis in either kidney. Reviewed, dictated and finalized at location A. IMPRESSION: 1. Atrophic right pelvic kidney. 2. A couple left renal cysts measuring up to 2.7 cm. No hydronephrosis in eithe r kidney.
--- NOTE | ~2023-02-04 | XR_ITS ---
Clinical Indication: Chest pain PA and lateral views of the chest: Comparison: 02/02/2021 Findings: The lungs are clear, without evidence of focal consolidation or pleural effusion. Cardiome diastinal silhouette is within normal limits. Bones and soft tissues are unremarkable. Impression: Normal chest. Reviewed, dictated and finalized at location . Impression: Normal chest.
--- NOTE | 2023-02-04 10:17 | ECG_ITS ---
Measurements Intervals [place] Rate: 50 P: 57 SC: 280 QRS: -9 QRSD: 107 T: 255 QT: 463 QTc: 424 Interpretive Statements SINUS BRADYCARDIA WITH FIRST DEGREE AV BLOCK ST DEVIATION AND MODERATE T-WAVE ABNORMALITY, CONSIDER LATERAL ISCHEMIA [-0.1+ mV T WAVE IN I/aVL/V5/V6] COMPARED TO ECG 05/22/2020 10:48:29 ST SEGMENT DEPRESSION IS NOW EVIDENT AND PVCS ARE NOT SEEN Electronically Signed On 02-04-2023 15:52:10 CDT by Teo Snyder M.D.
[2023-02-04 10:30] LABS: Basophils Absolute Auto 0.1 K/mm3 (0.0-0.1); Basophils Percent Auto 0.7 % (0.2-1.2); Eosinophils Absolute Auto 0.3 K/mm3 (0-0.3); Eosinophils Percent Auto 2.6 % (0-4.4); Hematocrit 33.5 % (42.0-52.0); Hemoglobin 10.6 g/dL (14.0-18.0); Immature Granulocyte Absolute 0.07 K/mm3 (0.00-0.031); Immature Granulocyte Percent A 0.5 % (0-0.5); Lymphocytes Absolute Auto 3.32 K/mm3 (0.9-3.2); Mean Corpuscular HGB Conc 31.6 g/dl (32-36); Mean Corpuscular Hemoglobin 27.9 pg (26-34); Mean Corpuscular Volume 88.2 fl (80-100); Mean Platelet Volume 9.2 fl (7.4-10.4); Monocytes Absolute Auto 0.7 K/mm3 (0.1-0.6); Monocytes Percent Auto 5.1 % (2.6-8.5); Neutrophils Absolute Auto 8.3 K/mm3 (1.3-6.7); Neutrophils Percent Auto 65.1 % (45.5-73.1); Platelet Count Result 277 k/mm3 (150-375); Red Cell Distribution Width 14.3 % (11.5-14.5); White Blood Count 12.8 K/mm3 (4.5-10.0)
[2023-02-04] MEDS: ASPIRIN 81 MG CHEWABLE TABLET 324 MG PO (10:37)
[2023-02-04 10:44] LABS: Prothrombin Time 13.5 Seconds (11.1-14.7)
[2023-02-04 10:45] LABS: Partial Thromboplastin Time 28.8 SECONDS (22.3-36.8)
[2023-02-04 10:52] LABS: Alanine Aminotransferase 21 U/L (6-50); Alkaline Phosphatase 97 U/L (38-126); Anion Gap 9 mmol/L (8-16); Aspartate Amino Transferase 20 U/L (17-59); Bilirubin,Total 0.4 mg/dL (0.2-1.3); Blood Urea Nitrogen 70 mg/dL (9-20); Calcium 8.1 mg/dL (8.4-10.2); Carbon Dioxide 14 mmol/L (22-30); Chloride 117 mmol/L (98-107); Estimated Glomerular Filt Rate 10; Glucose 95 mg/dL (65-110); Lipase 456 U/L (23-300); Potassium 4.5 mmol/L (3.4-5.0); Sodium 140 mmol/L (137-145)
[2023-02-04 11:05] LABS: Troponin I 0.095 ng/mL (0.000-0.034)
--- NOTE | 2023-02-04 11:22 | ED.CHESTPAIN ---
HPI - Chest Pain General Chief Complaint: Chest Pain Stated Complaint: chest pains Time Seen by Provider: 02/04/23 10:34 History of Present Illness HPI narrative: Patient is a 77-year-old male with history of coronary disease who presents ER with chest pain. Intermittent over the last 2 weeks but more persistent over the last 2 days. Radiates to his back. No dyspnea. Worse with physical movement. EKG with ST depression. Patient sees Dr. Bryson. Related Data Home Medications Medication Instructions Recorded Confirmed amlodipine 5 mg tablet 10 mg PO DAILY 05/22/20 02/04/23 aspirin 81 mg chewable tablet 81 mg PO DAILY 05/22/20 02/04/23 clopidogrel 75 mg tablet 75 mg PO DAILY 05/22/20 02/04/23 pravastatin 40 mg tablet 40 mg PO DAILY 02/04/23 02/04/23 tamsulosin 0.4 mg capsule 0.4 mg PO DAILY 02/04/23 02/04/23 Allergies Allergy/AdvReac Type Severity Reaction Status Date / Time Iodinated Contrast Media Allergy Intermediate Rash Verified 02/04/23 14:02 iodine Allergy Intermediate Rash Verified 02/04/23 14:02 poison felicia extract Allergy Mild RASH Verified 02/04/23 11:46 Review of Systems Review of Systems: All systems reviewed & are unremarkable except as noted in HPI and below Constitutional: Constitutional: Denies chills, Denies fatigue and Denies fever(s) ENT: Denies nasal congestion and Denies sore throat Cardiovascular: Cardiovascular: Reports chest pain, Denies rapid heart rate and Reports radiating jaw, neck or arm pain Respiratory: Respiratory: Denies cough, Denies dyspnea and Denies wheezing Gastrointestinal: Gastrointestinal: Denies abdominal pain, Denies nausea and Denies vomiting [facility] Past Medical History Medical History (Updated 02/04/23 @ 19:28 by Clarke Whitehead MD) BPH (benign prostatic hyperplasia) CAD (coronary artery disease) Cataracts, both eyes Maturing Chronic kidney disease, stage 4 (severe) Baseline creatinine around 2.5 Diabetes mellitus Most recent hemoglobin A1c between 6 and 7 according to patient report Diabetic peripheral neuropathy Stocking and glove Hyperlipidemia Hypertension Squamous cell carcinoma of scalp Surgical History Surgical History (Updated 02/04/23 @ 15:24 by Kenna Quijano NP) H/O inguinal hernia repair History of appendectomy History of coronary artery stent placement 6 stents placed in 2004 3 stents placed in [address] Michael Rodrigues History of tonsillectomy and adenoidectomy Hx of cataract extraction Family History Family History Father Hypertension Diabetes mellitus Acute myocardial infarction Congestive heart failure Mother Family history of Alzheimer's disease Daughter Breast cancer Diabetes mellitus Social History Social History Social History: Patient is but lives with his long-term girlfriend. He has a son who is 50 years old and a daughter who is now from cancer . He keeps busy by bowling. retired [employer] Code status: Full code Surrogate decision maker: Juliana (girlfriend) Smoking status: Never smoker Tobacco type: pipe Second hand tobacco smoke exposure: Yes Additional smoking assessment comments: occasional pipe smoking when pt was around 19 years old, no current use Alcohol intake: never Substance use: never Lack of Transportation: No Lack of Food: Never True Current Housing: I Have Housing Concerned About Future Housing: No Difficulty Paying Gas/Electric Bills: No Difficulty Paying for Meds: No Currently Unemployed: No Education: High School Diploma/GED Difficulty w/ Childcare or Family Care: No Gender identity (if verbalized by the patient): Male Spiritual care concerns: No Exam Narrative: GENERAL: Well-appearing, well-nourished, and in no acute distress. HEAD: Normocephalic, atraumatic. ENT: Mucous membranes m
[2023-02-04] MEDS: NITROGLYCERIN SL 0.4 MG TABLET SUBLINGUAL (11:42)
--- NOTE | 2023-02-04 12:31 | PM.IMHP ---
H&P: HPI History of Present Illness Date/Time: 02/04/23 12:31 Chief Complaint: Chest pain Narrative: This is a 77-year-old male patient who has had multiple cardiac stents in the past. The patient is not having any current chest pain at this time. His white count is 12.8. H&H is 10.6 and 33.5 which is his baseline. His BUN is 70 creatinine is 5.5. His GFR is 10. 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 Troponin is noted to be 0.095 and 0.087. EKG was read as sinus rhythm with first-degree AV block. Premature ventricular complexes. Cannot rule out septal infarction age indeterminate. Chest x-ray was read as a normal chest. Cardiology was consulted. The patient was started on heparin drip. He was also given aspirin and nitroglycerin. He is now chest pain-free. He denies any nausea vomiting or diarrhea. No fever chills. No radiation of discomfort. The patient is being admitted to observation status on the date of service of 02/04/2023. Review of Systems Review of Systems: All systems reviewed & are unremarkable except as noted in HPI and below Constitutional: Constitutional: Reports as per HPI and Reports no additional constitutional complaints Eyes: Eyes: Reports as per HPI and Reports no additional eye complaints ENT: Reports system reviewed and no additional complaints, except as documented and Reports Normal hearing present Cardiovascular: Cardiovascular: Reports no additional cardiovascular complaints Respiratory: Respiratory: Reports no additional respiratory complaints and Reports no additional respiratory complaints Gastrointestinal: Gastrointestinal: Reports as per HPI and Reports no additional gastrointestinal complaints Musculoskeletal: Musculoskeletal: Reports no additional musculoskeletal complaints Integumentary/Breasts: Skin/Breast: Reports system reviewed and no additional complaints, except as docu and Reports as per HPI Neurologic: Reports system reviewed and no additional complaints, except as documented, Reports as per HPI and Reports Normal hearing present Psychiatric: Psychiatric: Reports no additional psychiatric complaints and Reports as per HPI Endocrine: Endocrine: Reports no additional endocrine complaints Hematologic/Lymphatic: Hematologic/Lymphatic: Reports no additional hematologic/lymphatic complaints Allergic/Immunologic: Allergic/Immunologic: Reports no additional allergic/immunologic complaints [facility] Past Medical History Medical History (Updated 02/04/23 @ 15:44 by Kenna Quijano NP) BPH (benign prostatic hyperplasia) CAD (coronary artery disease) Cataracts, both eyes Maturing Chronic kidney disease, stage 4 (severe) Baseline creatinine around 2.5 Diabetes mellitus Most recent hemoglobin A1c between 6 and 7 according to patient report Diabetic peripheral neuropathy Stocking and glove Hyperlipidemia Hypertension Squamous cell carcinoma of scalp Surgical History Surgical History (Updated 02/04/23 @ 15:24 by Kenna Quijano NP) H/O inguinal hernia repair History of appendectomy History of coronary artery stent placement 6 stents placed in 2004 3 stents placed in [address] Michael Rodrigues History of tonsillectomy and adenoidectomy Hx of cataract extraction Family History Family History Father Hypertension Diabetes mellitus Acute myocardial infarction Congestive heart failure Mother Family history of Alzheimer's disease Daughter Breast cancer Diabetes mellitus Social History Social History Social History: Patient is but lives with his long-term girlfriend. He has a son who is 50 years old and a daughter who is now from cancer . He keeps busy by [employer]. retired [id number] Code status: Full code Surrogate decision maker: Juliana (girlfriend) Smoking status: Never
[2023-02-04] MEDS: HEPARIN SOD/D5W 100 UNITS/ML 25,000 UNITS/250 ML BAG 8 UNITS IV CONT (12:51)
[2023-02-04] MEDS: HEPARIN SODIUM 5,000 UNITS/ML VIAL 4000 UNITS IV PUSH ×2 (12:51→20:25)
[2023-02-04 13:25] LABS: Troponin I 0.087 ng/mL (0.000-0.034)
--- NOTE | 2023-02-04 14:02 | ADMGEN ---
This patient, Dayron Moser, was admitted to IMU Room 204-01. Patient/family oriented to hospital policies and general routines including ID bracelet, bed and alarms, visiting hours, pain management, procedures, bathroom and other care routines, personal items, smoking policy, room service/diet, and visiting hours. Information on how to activate the Rapid Response Team has been discussed. Patient/Family are encouraged to report perceived risks to care and to ask questions if they do not understand what they are told or what they should do.
[2023-02-04 15:53] LABS: Troponin I 0.089 ng/mL (0.000-0.034)
[2023-02-04 16:24] LABS: Glucose Point of Care 86 mg/dl (65-105)
[2023-02-04] MEDS: METOPROLOL TARTRATE 25 MG TABLET PO (17:10)
[2023-02-04 19:18] LABS: Prothrombin Time 13.7 Seconds (11.1-14.7)
[2023-02-04 20:11] LABS: Partial Thromboplastin Time 29.5 SECONDS (22.3-36.8)
[2023-02-04 20:19] LABS: Glucose Point of Care 85 mg/dl (65-105)
[2023-02-05] VITALS (17 sets, daily range): BP systolic 113–176; BP diastolic 41–64; PULSE 45–55; RESP 16–20; TEMP 36.1–37.7; O2SAT 96–100
[2023-02-05 03:15] LABS: Basophils Absolute Auto 0.1 K/mm3 (0.0-0.1); Basophils Percent Auto 0.5 % (0.2-1.2); Eosinophils Absolute Auto 0.4 K/mm3 (0-0.3); Hematocrit 31.5 % (42.0-52.0); Immature Granulocyte Absolute 0.05 K/mm3 (0.00-0.031); Immature Granulocyte Percent A 0.4 % (0-0.5); Lymphocytes Absolute Auto 3.09 K/mm3 (0.9-3.2); Lymphocytes Percent Auto 26.7 % (18.3-44.2); Mean Corpuscular HGB Conc 31.7 g/dl (32-36); Mean Corpuscular Hemoglobin 27.9 pg (26-34); Mean Platelet Volume 9.2 fl (7.4-10.4); Monocytes Absolute Auto 0.7 K/mm3 (0.1-0.6); Monocytes Percent Auto 6.1 % (2.6-8.5); Neutrophils Absolute Auto 7.3 K/mm3 (1.3-6.7); Neutrophils Percent Auto 63.3 % (45.5-73.1); Platelet Count Result 266 k/mm3 (150-375); Red Blood Count 3.58 M/mm3 (4.6-6.20); Red Cell Distribution Width 14.1 % (11.5-14.5); White Blood Count 11.6 K/mm3 (4.5-10.0)
[2023-02-05 03:23] LABS: Hemoglobin A1C 5.4 % (<5.7)
[2023-02-05 03:27] LABS: Alanine Aminotransferase 17 U/L (6-50); Albumin Level 3.5 g/dL (3.5-5.1); Alkaline Phosphatase 80 U/L (38-126); Anion Gap 12 mmol/L (8-16); Aspartate Amino Transferase 17 U/L (17-59); Bilirubin,Total 0.4 mg/dL (0.2-1.3); Blood Urea Nitrogen 67 mg/dL (9-20); Calcium 7.9 mg/dL (8.4-10.2); Carbon Dioxide 10 mmol/L (22-30); Chloride 117 mmol/L (98-107); Estimated CRCL calculation 9 ml/min; Estimated Glomerular Filt Rate 11; Glucose 81 mg/dL (65-110); Magnesium 2.2 mg/dL (1.6-2.3); Potassium 4.2 mmol/L (3.4-5.0); Sodium 139 mmol/L (137-145)
[2023-02-05 04:56] LABS: Lactic Acid Reflex < 0.5 mmol/L (0.7-2.0)
[2023-02-05 07:55] LABS: Glucose Point of Care 86 mg/dl (65-105)
[2023-02-05] MEDS: PRAVASTATIN SODIUM 20 MG TABLET 40 MG PO (08:51)
[2023-02-05] MEDS: ASPIRIN 81 MG CHEWABLE TABLET PO (08:52)
[2023-02-05] MEDS: amLODIPine BESYLATE 5 MG TABLET 10 MG PO (08:52)
[2023-02-05] MEDS: METOPROLOL TARTRATE 25 MG TABLET PO ×2 (08:52→17:18)
[2023-02-05] MEDS: CLOPIDOGREL BISULFATE 75 MG TABLET PO (08:54)
[2023-02-05 11:24] LABS: Partial Thromboplastin Time 180.4 SECONDS (22.3-36.8)
--- NOTE | 2023-02-05 12:22 | PM.CNCAR ---
Assessment and Plan Assessment and plan (1) Non-ST elevation [place] (NSTEMI): Code(s): I21.4 - Non-ST elevation (NSTEMI) myocardial infarction Status: Acute Assessment and Plan: Patient presents with symptoms which may be unstable angina. He does have elevated troponins but these are unimpressive, low and flat. He does have [address]-depression in V5 and V6, suggestive of a non-STEMI/acute coronary syndrome. This may be a life-threatening problem, or least 1 that has a high likelihood of morbidity. --continue aspirin and Plavix --Continue heparin for 48 hours --continue metoprolol; unable to increase the dose due to his mild bradycardia. --add isosorbide and sublingual TN G p.r.n. --Improve blood pressure control --Repeat EKG --hopefully patient will settle down with medical therapy. If his symptoms escalate we may need to consider cardiac catheterization, but he certainly he is a high risk of acute renal failure and starting dialysis after IV contrast exposure. In addition, he does have an IV contrast allergy. Discussed extensively with the patient. (2) CAD (coronary artery disease): Qualifiers: Coronary Disease-Associated Artery/Lesion type: [place] artery [place] vs. transplanted heart: [place] heart Associated angina: without angina Qualified Code(s): I25.10 - Atherosclerotic heart disease of [place] coronary artery without angina pectoris Code(s): I25.10 - Atherosclerotic heart disease of [place] coronary artery without angina pectoris Status: Chronic Assessment and Plan: Long history of CAD and multiple stents. (3) Hyperlipidemia: Code(s): E78.5 - Hyperlipidemia, unspecified Status: Acute Assessment and Plan: Takes pravastatin, LDL cholesterol was 68 in June 2022. --May be better off with atorvastatin 40 mg daily. (4) Hypertension: Code(s): I10 - Essential (primary) hypertension Status: Acute Assessment and Plan: Blood pressure has not been at goal. Previously was on losartan HCT which was discontinued because of dehydration and dizziness. --adding a nitrate (5) Chronic kidney disease, stage 4 (severe): Code(s): N18.4 - Chronic kidney disease, stage 4 (severe) Status: Acute History of Present Illness History of Present Illness Consult date/time: 02/05/23 12:22 Reason For Visit: NSTEMI Narrative: Dayron Moser is a 77 y.o. male whom we were asked to see at [facility] request of Dr. Whitehead for our advice and opinion regarding his elevated troponins in consultation. He has a history of CAD and sees Dr. Marquez. He also sees Dr. Ayers for his CKD stage 4-5. He has history of hypertension. The patient has a history of multiple prior stents. Two thousand five: 2 stents in the OM, 2 stents in the mid Left anterior descending, 1 stent in the distal Left anterior descending, 1 stent in the diagonal. 2005:1 stent in the diagonal, 1 stent in the circumflex. He has been maintained on dual anti-platelet therapy and has done well the last several years. Echo in October 2022 showed EF 60-65%, strain-19%, mild LVH, mild aortic stenosis with a peak velocity 2.3 M/S, mean gradient 11 mmHg, DONALD 1.8 cm2 The patient has been having episodes of what he describes as heartburn the last 2 weeks which he states is worse after eating spicy foods or lying down after a meal. He has aching pressure in tightness across his shoulder blades that sometimes radiates to his chest lasting for 10 or 15 minutes intermittently through the day and particularly at night. When this occurs he may get short of breath as well. The symptoms are relieved by belching and passing gas. He has not tried any medications for this. It is nonexertional but the patient is very inactive. He was started on heparin drip in the emergency room has had no further episodes. He read about the side effects of metoprolol and wonders if his symptoms are due to this medication
[2023-02-05 12:24] LABS: Glucose Point of Care 88 mg/dl (65-105)
--- NOTE | 2023-02-05 13:43 | ECG_ITS ---
Measurements Intervals [place] Rate: 47 P: 52 SD: 290 QRS: -28 QRSD: 109 T: 145 QT: 490 QTc: 436 Interpretive Statements SINUS BRADYCARDIA WITH FIRST DEGREE AV BLOCK BORDERLINE LEFT AXIS DEVIATION [QRS AXIS < -20] ST DEVIATION AND MODERATE T-WAVE ABNORMALITY, CONSIDER LATERAL ISCHEMIA [-0.1+ mV T WAVE IN I/aVL/V5/V6] COMPARED TO ECG 02/04/2023 10:20:57 NO SIGNIFICANT CHANGES Electronically Signed On 02-05-2023 16:25:38 CDT by Natasha Vidal M.D.
[2023-02-05] MEDS: TAMSULOSIN HCL 0.4 MG CAPSULE PO (15:02)
[2023-02-05] MEDS: FAMOTIDINE 20 MG TABLET PO ×2 (15:02→20:55)
[2023-02-05] MEDS: ISOSORBIDE MONONITRATE 30 MG TAB.ER.24H PO (15:02)
[2023-02-05] MEDS: HEPARIN SOD/D5W 100 UNITS/ML 25,000 UNITS/250 ML BAG 7 UNITS IV CONT (17:21)
[2023-02-05 17:26] LABS: Glucose Point of Care 123 mg/dl (65-105)
--- NOTE | 2023-02-05 17:39 | PM.CNNEP ---
Assessment and Plan Assessment and plan (1) Chronic kidney disease, stage 5: Code(s): N18.5 - Chronic kidney disease, stage 5 Status: Acute Assessment and Plan: the patient has chronic kidney disease. This is most likely due to diabetes and hypertension. This is progressively worsened in the last few months. His GFR is currently about 11. He does not have any symptoms of uremia so there is no need to start dialysis now unless he develops some. We discussed that he should get a fistula once medically stable. This can be done as an outpatient. This way he can start dialysis as an outpatient not have to worry about a catheter. (2) Hyperlipidemia: Code(s): E78.5 - Hyperlipidemia, unspecified Status: Acute Assessment and Plan: The patient has hyperlipidemia. He is on pravastatin. (3) CAD (coronary artery disease): Qualifiers: Coronary Disease-Associated Artery/Lesion type: [place] artery [place] vs. transplanted heart: [place] heart Associated angina: without angina Qualified Code(s): I25.10 - Atherosclerotic heart disease of [place] coronary artery without angina pectoris Code(s): I25.10 - Atherosclerotic heart disease of [place] coronary artery without angina pectoris Status: Chronic (4) Hypertension: Code(s): I10 - Essential (primary) hypertension Status: Acute Assessment and Plan: Blood pressure is doing well. His last systolic was 113 (5) Diabetes mellitus: Qualifiers: Diabetes mellitus type: type 2 Diabetes mellitus long-term insulin use: without long-term use Diabetes mellitus complication status: without complication Qualified Code(s): E11.9 - Type 2 diabetes mellitus without complications Code(s): E11.9 - Type 2 diabetes mellitus without complications Status: Chronic Assessment and Plan: management per hospitalist's (6) Non-ST elevation [place] (NSTEMI): Code(s): I21.4 - Non-ST elevation (NSTEMI) myocardial infarction Status: Acute Assessment and Plan: cardiology saw the patient. Troponins are stable not rising however he has EKG changes which is the concerning part. Hopefully medical therapy will settle this down. History of Present Illness Reason for Consult Consult date: 02/05/23 Chief Complaint Chief complaint: NSTEMI History of Present Illness Narrative: Dayron is a very pleasant 77-year-old gentleman who has multiple medical problems including chronic kidney disease stage 5, anemia, diabetes, hypertension, hyperlipidemia, coronary disease, BPH, peripheral neuropathy. The patient has been followed for his high BUN and creatinine for the past few months. The numbers have gotten worse lately. At 1st he was not sure he wanted to do dialysis at all. Then he decided he would want to do dialysis. We discussed at length over the phone which kind of dialysis he would want to do. He thought about it more and now has decided he wants to do incenter hemodialysis. He has had no uremic symptoms such as nausea, vomiting, sleeplessness, weakness, fatigue. The patient came in the hospital because he started having chest pain. He says that most the time when he has chest pain it is gas in when he burps that pain is relieved. on the day of admission, he was having chest pain and burping did not relieve the pain. He continued to worsen so he came to the ER. He was evaluated in the ER. Chest x-ray was clear. Troponins were checked and were mildly elevated but follow-up levels were the same. He was placed on heparin drip. Cardiology saw the patient . They felt that the pain might be unstable angina. So he has continued with medical therapy being the symptoms calmed down. If they do not he will need cardiac catheterization but of course with his high BUN and creatinine hesitate to do this especially with his contrast allergy. Review of Systems Constitutional: Constitutiona
--- NOTE | 2023-02-05 18:41 | PM.IMPN ---
Progress Note: A&P Assessment and Plan (1) Chest pain: Code(s): R07.9 - Chest pain, unspecified Status: Acute Assessment and Plan: Appreciate cardiology consultation, continue heparin drip, monitor closely (2) Diabetes mellitus: Qualifiers: Diabetes mellitus type: type 2 Diabetes mellitus watermelon harvesting supervisor insulin use: without watermelon harvesting supervisor use Diabetes mellitus complication status: without complication Qualified Code(s): E11.9 - Type 2 diabetes mellitus without complications Code(s): E11.9 - Type 2 diabetes mellitus without complications Status: Chronic Assessment and Plan: Accu-Cheks AC and HS check A1c. Sliding scale insulin. Blood glucose reviewed 02/05 (3) BPH (benign prostatic hyperplasia): Code(s): N40.0 - Benign prostatic hyperplasia without lower urinary tract symptoms Status: Acute Assessment and Plan: Continue with tamsulosin (4) Acute kidney injury superimposed on CKD: Code(s): N17.9 - Acute kidney failure, unspecified; N18.9 - Chronic kidney disease, unspecified Status: Acute Assessment and Plan: Appreciate nephrology consultation, severe kidney disease, concerning for need for hemodialysis soon (5) Hyperlipidemia: Code(s): E78.5 - Hyperlipidemia, unspecified Status: Acute Assessment and Plan: Continue with pravastatin Plan DVT prophylaxis with heparin GI prophylaxis not indicated Code status full code Subjective Date/time seen: 02/05/23 18:41 Interval history: No overnight events noted. No chest pain or shortness of breath. No nausea, vomiting or diarrhea. No fevers or chills. Review of Systems Review of Systems: 12 point review of systems was assessed and was negative except as noted in the HPI Exam Narrative: General: No acute distress, alert and oriented per baseline HEENT: Atraumatic, normocephalic, mucous membranes moist CV: Regular rate and rhythm, S1, S2 Lungs: Clear to auscultation bilaterally, no rales or crackles noted, no wheezes, good air entry Abdomen: Soft, nontender, nondistended Extremities: Normal to inspection Skin: No rashes noted, no lesions or wounds seen Psych: Euthymic, normal affect Objective Data Vital Signs Vital Signs: Vital Signs - 24 hr 02/04/23 20:00 02/04/23 20:00 02/04/23 20:00 Temperature 97.7 F Pulse Rate 50 L 55 L 55 L Respiratory Rate 16 16 Blood Pressure 179/63 H Pulse Oximetry 100 100 Oxygen Delivery Room Air 02/04/23 21:38 02/04/23 23:23 02/05/23 00:00 Temperature 98.3 F Pulse Rate 58 L 48 L 50 L Respiratory Rate 20 Blood Pressure 182/57 H Pulse Oximetry 99 Oxygen Delivery 02/05/23 00:00 02/05/23 02:00 02/05/23 04:00 Temperature Pulse Rate 50 L 50 L 49 L Respiratory Rate 20 Blood Pressure Pulse Oximetry 99 Oxygen Delivery Room Air 02/05/23 04:00 02/05/23 04:00 02/05/23 05:16 Temperature 98.1 F Pulse Rate 49 L 47 L 50 L Respiratory Rate 20 16 Blood Pressure 176/64 H Pulse Oximetry 99 99 Oxygen Delivery Room Air 02/05/23 08:19 02/05/23 08:00 02/05/23 08:52 Temperature 99.5 F Pulse Rate 52 L 54 L 55 L Respiratory Rate 16 Blood Pressure 163/60 H Pulse Oximetry 96 99 Oxygen Delivery Room Air 02/05/23 08:00 02/05/23 12:00 02/05/23 12:00 Temperature 99.9 F H Pulse Rate 50 L Respiratory Rate 17 Blood Pressure 155/60 H Pulse Oximetry 100 Oxygen Delivery Room Air Room Air 02/05/23 16:00 02/05/23 16:00 02/05/23 17:18 Temperature 97.5 F L Pulse Rate 48 L 52 L Respiratory Rate 16 Blood Pressure 113/59 L Pulse Oximetry 98 Oxygen Delivery Room Air 02/05/23 08:00 02/05/23 10:00 02/05/23 12:00 Temperature Pulse Rate 50 L 47 L 47 L Respiratory Rate Blood Pressure Pulse Oximetry Oxygen Delivery 02/05/23 14:00 02/05/23 16:00 02/05/23 18:00 Temperature Pulse Rate 48 L 49 L 48 L Respirator
[2023-02-05 18:48] LABS: Partial Thromboplastin Time 108.8 SECONDS (22.3-36.8)
[2023-02-05 20:40] LABS: Glucose Point of Care 155 mg/dl (65-105)
[2023-02-06] VITALS (20 sets, daily range): BP systolic 131–176; BP diastolic 44–62; PULSE 44–62; RESP 16–20; TEMP 35.8–36.3; O2SAT 99–100
[2023-02-06 01:46] LABS: Partial Thromboplastin Time 75.1 SECONDS (22.3-36.8)
[2023-02-06 07:39] LABS: Hematocrit 30.5 % (42.0-52.0); Hemoglobin 9.6 g/dL (14.0-18.0); Mean Corpuscular HGB Conc 31.5 g/dl (32-36); Mean Corpuscular Hemoglobin 27.4 pg (26-34); Mean Corpuscular Volume 87.1 fl (80-100); Mean Platelet Volume 9.6 fl (7.4-10.4); Platelet Count Result 260 k/mm3 (150-375); Red Cell Distribution Width 14.1 % (11.5-14.5); White Blood Count 10.6 K/mm3 (4.5-10.0)
[2023-02-06 07:50] LABS: Albumin Level 3.4 g/dL (3.5-5.1); Anion Gap 10 mmol/L (8-16); Blood Urea Nitrogen 69 mg/dL (9-20); Carbon Dioxide 12 mmol/L (22-30); Chloride 115 mmol/L (98-107); Estimated CRCL calculation 9 ml/min; Estimated Glomerular Filt Rate 11; Glucose 93 mg/dL (65-110); Phosphorus 6.2 mg/dL (2.5-4.5); Potassium 4.2 mmol/L (3.4-5.0); Sodium 137 mmol/L (137-145)
[2023-02-06 07:54] LABS: Partial Thromboplastin Time 61.7 SECONDS (22.3-36.8)
[2023-02-06] MEDS: HEPARIN SODIUM 5,000 UNITS/ML VIAL 2500 UNITS IV PUSH (08:00)
[2023-02-06] MEDS: FAMOTIDINE 20 MG TABLET PO ×2 (08:01→20:05)
[2023-02-06] MEDS: amLODIPine BESYLATE 5 MG TABLET 10 MG PO (08:01)
[2023-02-06] MEDS: ASPIRIN 81 MG CHEWABLE TABLET PO (08:01)
[2023-02-06] MEDS: TAMSULOSIN HCL 0.4 MG CAPSULE PO (08:01)
[2023-02-06] MEDS: METOPROLOL TARTRATE 25 MG TABLET PO (08:01)
[2023-02-06] MEDS: CLOPIDOGREL BISULFATE 75 MG TABLET PO (08:01)
[2023-02-06] MEDS: ATORVASTATIN 40 MG TABLET PO (08:01)
[2023-02-06] MEDS: ISOSORBIDE MONONITRATE 30 MG TAB.ER.24H PO (08:02)
[2023-02-06 08:14] LABS: Glucose Point of Care 102 mg/dl (65-105)
[2023-02-06 11:28] LABS: Glucose Point of Care 116 mg/dl (65-105)
--- NOTE | 2023-02-06 11:48 | PM.PNCARD ---
Progress Note: A&P Assessment and Plan (1) Non-ST elevation [place] (NSTEMI): Code(s): I21.4 - Non-ST elevation (NSTEMI) myocardial infarction Status: Acute Assessment and Plan: Patient presents with symptoms which may be unstable angina/ACS. He does have elevated troponins but these are unimpressive, low and flat. He does have [address]-depression in V5 and V6, suggestive of a non-STEMI/acute coronary syndrome, though no change c.t. admission, so possibly a chronic abnormality 2nd LVH. --continue aspirin and Plavix --continue metoprolol; unable to increase the dose due to his mild bradycardia. --added isosorbide and sublingual TN G p.r.n. --Improve blood pressure control --Cont Pepcid --DC heparin (2) CAD (coronary artery disease): Qualifiers: Coronary Disease-Associated Artery/Lesion type: [place] artery [place] vs. transplanted heart: [place] heart Associated angina: without angina Qualified Code(s): I25.10 - Atherosclerotic heart disease of [place] coronary artery without angina pectoris Code(s): I25.10 - Atherosclerotic heart disease of [place] coronary artery without angina pectoris Status: Chronic Assessment and Plan: Long history of CAD and multiple stents. --Cont DAPT, statin tx (3) Hyperlipidemia: Code(s): E78.5 - Hyperlipidemia, unspecified Status: Acute Assessment and Plan: Takes pravastatin, LDL cholesterol was 68 in June 2022. --Changed to hig-dose statin tx per guidelines, atorvastatin 40 mg daily. (4) Bradycardia: Code(s): R00.1 - Bradycardia, unspecified Status: Acute Assessment and Plan: Heart rate 44-54 BPM, a bit too low perhaps for a 77 y.o. --Reduce metop fr 25 mg BID to 12.5 mg BID. (5) Hypertension: Code(s): I10 - Essential (primary) hypertension Status: Acute Assessment and Plan: Blood pressure has not been at goal. Previously was on losartan HCT which was discontinued because of dehydration and dizziness. --added a nitrate --Add hydralazine 25 mg TID (6) CKD stage 5 secondary to hypertension: Code(s): I12.0 - Hypertensive chronic kidney disease with stage 5 chronic kidney disease or end stage renal disease; N18.5 - Chronic kidney disease, stage 5 Status: Acute Assessment and Plan: Dr. Amin recommends an elective shunt placement. Subjective Date/time seen: 02/06/23 11:48 Interval history: Dayron Moser is a 77-year-old male with history of CAD and multiple stents followed by Dr. Marquez. We are following him for chest discomfort, probably ACS/ non STEMI. He was started on heparin drip on admission, 02/04/2023. He also has a mild exacerbation of chronic kidney disease, stage 5. 02/05/2023: Continue aspirin, Plavix, heparin, metoprolol. Added isosorbide , changed pravastatin to atorvastatin.. Date of service 02/06/2023: Feels fine, no more indigestion. Remains hypertensive. Chronic sinus bradycardia heart rate 44- 54 ppm. Remains on room air. Repeat EKG from yesterday reviewed, normal sinus rhythm, lateral ST and T changes, stable, no change, no progression. Personally reviewed. Review of Systems Review of Systems: No more CP/indigestion, tolerating bland diet, no SOB, abdom pain, bleeding Exam Const: General: cooperative, healthy appearing and comfortable; No confusion Orientation/consciousness: oriented to person, patient oriented x3 and No confusion Other: Lying supine, NAD HENMT: Mouth: Yes moist mucous membranes Eyes: General: appearance normal, both eyes and all related structures EOM: EOMs intact bilaterally Neck: Neck: supple Resp: Effort & Inspection: normal respiratory effort Auscultation: clear to auscultation bilaterally Cardio: Rate: regular rate Rhythm: regular rhythm Heart sounds: no murmurs GI: Inspection: normal to inspection GI Palp: No abdominal tenderness Skin: General skin exam: norm
--- NOTE | 2023-02-06 13:49 | PM.PNNEP ---
Progress Note: A&P Assessment and Plan (1) Chronic kidney disease, stage 5: Code(s): N18.5 - Chronic kidney disease, stage 5 Status: Acute Assessment and Plan: slow and steady progression over the last few months thought to be secondary to HTN, DM, vascular disease, and age-related change in spite of advanced disease, no critical electrolytes and no signs of volume overload or uremia so no urgent need to institute dialysis metabolic acidosis noted - on sodium bicarbonate plan outpatient AV access placement for eventual dialysis needs (2) Non-ST elevation [place] (NSTEMI): Code(s): I21.4 - Non-ST elevation (NSTEMI) myocardial infarction Status: Acute Assessment and Plan: Cardiology following no cardiac catheterization given advaned kidney disease continue aggressive medial management (3) Hypertension: Code(s): I10 - Essential (primary) hypertension Status: Chronic Assessment and Plan: reasonable control at this time follow trend of hemodynamics (4) Anemia: Code(s): D64.9 - Anemia, unspecified Status: Acute Assessment and Plan: probably related to CKD may benefit from outpatient ESAs follow H/H (5) Diabetes mellitus: Qualifiers: Diabetes mellitus type: type 2 Diabetes mellitus rat exterminator insulin use: without rat exterminator use Diabetes mellitus complication status: without complication Qualified Code(s): E11.9 - Type 2 diabetes mellitus without complications Code(s): E11.9 - Type 2 diabetes mellitus without complications Status: Chronic Assessment and Plan: follow accu-cheks glycemic control per hospitalists Will continue to follow. Subjective Date/time seen: 02/06/23 13:49 Interval history: Follow-up for advanced chronic kidney disease/chronic kidney disease stage 5. Chart reviewed -- assuming care from Dr. Amin; no acute issues or problems noted at this time; feels reasonably well; no apparent distress; no issues/events overnight or earlier this morning. Exam Narrative: General: elderly male in NAD Heart: normal S1 and S2; no rub Lungs: clear to auscultation Abdomen: soft, nontender, nondistended, positive bowel sounds Extremities: no cyanosis or clubbing; no edema Skin: warm and dry Objective Data Vital Signs Vital Signs: Vital Signs Temp Pulse Resp BP Pulse Ox O2 Del Method 02/06/23 13:00 50 L 02/06/23 12:00 46 L 02/06/23 12:00 Room Air 02/06/23 11:59 96.6 F L 47 L 20 146/56 H 100 02/06/23 10:00 44 L 02/06/23 08:00 54 L 02/06/23 08:00 Room Air 02/06/23 08:15 96.6 F L 52 L 20 176/62 H 100 02/06/23 08:01 52 L 02/06/23 06:00 46 L 02/06/23 04:00 50 L 02/06/23 04:00 47 L 16 99 Room Air 02/06/23 03:23 96.9 F L 47 L 16 169/57 H 99 02/06/23 02:00 51 L 02/06/23 00:00 49 L 02/06/23 00:00 45 L 18 100 Room Air 02/05/23 22:00 47 L 02/05/23 23:22 97.0 F L 45 L 18 130/41 L 100 02/05/23 20:00 47 L 02/05/23 20:00 49 L 16 100 Room Air 02/05/23 19:53 97.4 F L 49 L 16 144/58 H 100 Intake/Output Intake/Output: Intake & Output 02/03/23 02/04/23 02/05/23 02/06/23 23:59 23:59 23:59 23:59 Intake Total 240 1390 1559 Balance 240 1390 1559 Meds/Results Medications: Active Medications Generic Name Dose Route Start Last Admin Trade Name Freq PRN Reason Stop Dose Admin Acetaminophen 650 mg 02/04/23 12:23 Acetaminophen 325 Mg Tablet PO Q4H PRN Mild Pain (1-3) or Fever Hydrocodone Bitart/Acetaminophen 1 tab 02/04/23 12:23 Hydrocodone/Acetaminophen (*Crx) 5-325 Mg Tablet PO Q4H PRN Pain Rated 4-6 Amlodipine Besylate 10 mg 02/05/23 09:00 02/06/23 08:01 Amlodipine Besylate 5 Mg Tablet PO 10 mg DAILY DARIANA Administration Aspirin 81 mg 02/05/23 09:00 02/06/23 08:01 Aspir
--- NOTE | 2023-02-06 13:49 | P.PNNP_ITS ---
Progress Note: A&P Assessment and Plan (1) Chronic kidney disease, stage 5: Code(s): N18.5 - Chronic kidney disease, stage 5 Status: Acute Assessment and Plan: * slow and steady progression over the last few months * thought to be secondary to HTN, DM, vascular disease, and age-related change * in spite of advanced disease, no critical electrolytes and no signs of volume overload or uremia so no urgent need to institute dialysis * metabolic acidosis noted - on sodium bicarbonate * plan outpatient AV access placement for eventual dialysis needs (2) Non-ST elevation [place] (NSTEMI): Code(s): I21.4 - Non-ST elevation (NSTEMI) myocardial infarction Status: Acute Assessment and Plan: * Cardiology following * no cardiac catheterization given advaned kidney disease * continue aggressive medial management (3) Hypertension: Code(s): I10 - Essential (primary) hypertension Status: Chronic Assessment and Plan: * reasonable control at this time * follow trend of hemodynamics (4) Anemia: Code(s): D64.9 - Anemia, unspecified Status: Acute Assessment and Plan: * probably related to CKD * may benefit from outpatient ESAs * follow H/H (5) Diabetes mellitus: Qualifiers: Diabetes mellitus type: type 2 Diabetes mellitus shelter insulin use: without emt intermediate use Diabetes mellitus complication status: without com plication Qualified Code(s): E11.9 - Type 2 diabetes mellitus without comp lications Code(s): E11.9 - Type 2 diabetes mellitus without complications Status: Chronic Assessment and Plan: * follow accu-cheks * glycemic control per hospitalists Will continue to follow. Subjective Date/time seen: 02/06/23 13:49 Interval history: Follow-up for advanced chronic kidney disease/chronic kidney disease stage 5. Chart reviewed -- assuming care from Dr. Amin; no acute issues or problems noted at this time; feels reasonably well; no apparent distress; no issues/events overnight or earlier this morning. Exam Narrative: General: elderly male in NAD Heart: normal S1 and S2; no rub Lungs: clear to auscultation Abdomen: soft, nontender, nondistended, positive bowel sounds Extremities: no cyanosis or clubbing; no edema Skin: warm and dry Objective Data Vital Signs Vital Signs: Vital Signs Temp Pulse Resp BP Pulse Ox O2 Del Method 02/06/23 13:00 50 L 02/06/23 12:00 46 L 02/06/23 12:00 Room Air 02/06/23 11:59 96.6 F L 47 L 20 146/56 H 100 02/06/23 10:00 44 L 02/06/23 08:00 54 L 02/06/23 08:00 Room Air 02/06/23 08:15 96.6 F L 52 L 20 176/62 H 100 02/06/23 08:01 52 L 02/06/23 06:00 46 L 02/06/23 04:00 50 L 02/06/23 04:00 47 L 16 99 Room Air 02/06/23 03:23 96.9 F L 47 L 16 169/57 H 99 02/06/23 02:00 51 L 02/06/23 00:00 49 L 02/06/23 00:00 45 L 18 100 Room Air 02/05/23 22:00 47 L 02/05/23 23:22 97.0 F L 45 L 18 130/41 L 100 02/05/23 20:00 47 L 02/05/23 20:00 49 L 16 100 Room Air 02/05/23 19:53 97.4 F L 49 L 16 144/58 H 100 Intake/Output Intake/Output:
--- NOTE | 2023-02-06 14:44 | PM.IMPN ---
Progress Note: A&P Assessment and Plan (1) Chest pain: Code(s): R07.9 - Chest pain, unspecified Status: Acute Assessment and Plan: Patient presents with symptoms concerning for unstable angina/ACS.? Troponins elevated but flat to 0.095. EKG showing ST-T wave changes in the lateral and high lateral leads. Consider LVH with strain vs non-STEMI/acute coronary syndrome. Continue medical management with ASA, Plavix, Lopressor, Lipitor and now isosorbide. Appreciate cardilogy input. (2) Acute kidney injury superimposed on CKD: Code(s): N17.9 - Acute kidney failure, unspecified; N18.9 - Chronic kidney disease, unspecified Status: Acute Assessment and Plan: Baseline Cr around 4.4-4.9 earlier this year. Cr 5.5 on admission. He is close to needing dialysis. He has serum bicarb of 12 today. no n/v. No fluid overload. Potassium okay. Change to renal diet. Nephrology consulted and appreciate their input. He was undecided about starting dialysis. Add oral bicarb. (3) Hypertension: Code(s): I10 - Essential (primary) hypertension Status: Acute Assessment and Plan: Patient's blood pressure was reviewed on 02/06 Blood pressure remains elevated. Hydralazine added. Will continue to monitor. (4) Diabetes mellitus: Qualifiers: Diabetes mellitus complication status: without complication Diabetes mellitus fci insulin use: without termite helper use Diabetes mellitus type: type 2 Qualified Code(s): E11.9 - Type 2 diabetes mellitus without complications Code(s): E11.9 - Type 2 diabetes mellitus without complications Status: Chronic Assessment and Plan: The patient's blood glucose was reviewed on 02/06 Glucose remains well controlled. Continue AccuCheks covering with sliding scale. Hypoglycemia protocol available as needed. Continue to monitor (5) Bradycardia: Code(s): R00.1 - Bradycardia, unspecified Status: Acute Assessment and Plan: Sinus bradycardia noted on tele. Metoprolol dose was decreased. (6) CKD stage 5 secondary to hypertension: Code(s): I12.0 - Hypertensive chronic kidney disease with stage 5 chronic kidney disease or end stage renal disease; N18.5 - Chronic kidney disease, stage 5 Status: Acute Assessment and Plan: As above. (7) BPH (benign prostatic hyperplasia): Code(s): N40.0 - Benign prostatic hyperplasia without lower urinary tract symptoms Status: Acute Assessment and Plan: Stable. Voiding well. Continue with tamsulosin. (8) Hyperlipidemia: Code(s): E78.5 - Hyperlipidemia, unspecified Status: Acute Assessment and Plan: LFTs okay. Continue with high dose Lipitor. Plan DVT prophylaxis with heparin Code status full code Subjective Date/time seen: 02/06/23 14:44 Interval history: 77yo male with history of CAD with multiple stents, CKD and DM here for chest pain probably ACS/NSTEMI. He was started on heparin drip on admission, 02/04/2023. Assuming care. Chart reviewed. He feels well. No n/v. No CP. Slept well. Voiding well. No foamy urine. No dysuria or hematuria. No blood in stool. +BMs. Exam Narrative: AF 96.6 146/56 50 20 100% ra Gen - NARD Chest - CTA bilaterally, nml RR CV - RRR S1/S2. Tele showing occasional episodes of bradycardia. Abd - Soft, NT/ND, Positive BS Ext - No pedal edema Psych - Nml mood and affect Skin - Warm and dry Objective Data Vital Signs Vital Signs: Vital Signs - 24 hr 02/05/23 16:00 02/05/23 16:00 02/05/23 17:18 Temperature 97.5 F L Pulse Rate 48 L 52 L Respiratory Rate 16 Blood Pressure 113/59 L Pulse Oximetry 98 Oxygen Delivery Room Air 02/05/23 16:00 02/05/23 18:00 02/05/23 19:53 Temperature 97.4 F L Pulse Rate 49 L 48 L 49 L Respiratory Rate 16 Blood Pressure 144/58 H Pulse Oximetry 100 Oxygen Delivery 02/05/23 20:00 01/18
[2023-02-06 16:50] LABS: Glucose Point of Care 99 mg/dl (65-105)
[2023-02-06] MEDS: SODIUM BICARBONATE TAB 650 MG TABLET PO (17:05)
[2023-02-06] MEDS: hydrALAZINE HCL 25 MG TABLET PO (17:05)
[2023-02-06] MEDS: METOPROLOL TARTRATE 12.5 MG TABLET PO (17:07)
[2023-02-06 20:18] LABS: Glucose Point of Care 117 mg/dl (65-105)
[2023-02-07] VITALS (12 sets, daily range): BP systolic 132–156; BP diastolic 49–69; PULSE 48–62; RESP 18–20; TEMP 36.1–36.7; O2SAT 100
[2023-02-07 04:47] LABS: Basophils Absolute Auto 0.1 K/mm3 (0.0-0.1); Basophils Percent Auto 0.5 % (0.2-1.2); Eosinophils Absolute Auto 0.3 K/mm3 (0-0.3); Eosinophils Percent Auto 2.8 % (0-4.4); Hemoglobin 9.5 g/dL (14.0-18.0); Immature Granulocyte Absolute 0.05 K/mm3 (0.00-0.031); Immature Granulocyte Percent A 0.5 % (0-0.5); Lymphocytes Absolute Auto 2.33 K/mm3 (0.9-3.2); Lymphocytes Percent Auto 23.5 % (18.3-44.2); Mean Corpuscular HGB Conc 31.7 g/dl (32-36); Mean Corpuscular Hemoglobin 27.6 pg (26-34); Mean Corpuscular Volume 87.2 fl (80-100); Mean Platelet Volume 9.4 fl (7.4-10.4); Monocytes Absolute Auto 0.7 K/mm3 (0.1-0.6); Monocytes Percent Auto 6.7 % (2.6-8.5); Neutrophils Absolute Auto 6.5 K/mm3 (1.3-6.7); Platelet Count Result 242 k/mm3 (150-375); Red Blood Count 3.44 M/mm3 (4.6-6.20); White Blood Count 9.9 K/mm3 (4.5-10.0)
[2023-02-07 05:09] LABS: Albumin Level 3.3 g/dL (3.5-5.1); Anion Gap 12 mmol/L (8-16); Blood Urea Nitrogen 66 mg/dL (9-20); Calcium 7.9 mg/dL (8.4-10.2); Carbon Dioxide 14 mmol/L (22-30); Chloride 110 mmol/L (98-107); Estimated CRCL calculation 8 ml/min; Estimated Glomerular Filt Rate 9; Glucose 90 mg/dL (65-110); Magnesium 2.2 mg/dL (1.6-2.3); Phosphorus 6.1 mg/dL (2.5-4.5); Potassium 3.9 mmol/L (3.4-5.0); Sodium 136 mmol/L (137-145)
[2023-02-07] MEDS: hydrALAZINE HCL 25 MG TABLET PO ×3 (08:07→16:25)
[2023-02-07] MEDS: TAMSULOSIN HCL 0.4 MG CAPSULE PO (08:07)
[2023-02-07] MEDS: amLODIPine BESYLATE 5 MG TABLET 10 MG PO (08:07)
[2023-02-07] MEDS: SODIUM BICARBONATE TAB 650 MG TABLET 1300 MG PO ×2 (08:08→16:25)
[2023-02-07] MEDS: ASPIRIN 81 MG CHEWABLE TABLET PO (08:08)
[2023-02-07] MEDS: FAMOTIDINE 20 MG TABLET PO (08:08)
[2023-02-07] MEDS: METOPROLOL TARTRATE 12.5 MG TABLET PO ×2 (08:08→16:26)
[2023-02-07] MEDS: ISOSORBIDE MONONITRATE 30 MG TAB.ER.24H PO (08:08)
[2023-02-07] MEDS: CLOPIDOGREL BISULFATE 75 MG TABLET PO (08:08)
[2023-02-07] MEDS: ATORVASTATIN 40 MG TABLET PO (08:08)
[2023-02-07 08:31] LABS: Glucose Point of Care 76 mg/dl (65-105)
--- NOTE | 2023-02-07 09:05 | PM.PNCARD ---
Progress Note: A&P Assessment and Plan (1) Non-ST elevation [place] (NSTEMI): Code(s): I21.4 - Non-ST elevation (NSTEMI) myocardial infarction Status: Acute Assessment and Plan: Patient presents with symptoms which may have be unstable angina/ACS. He does have elevated troponins but these are unimpressive, low and flat. He does have [address]-depression in V5 and V6, suggestive of a non-STEMI/acute coronary syndrome, though no change c.t. admission, so possibly a chronic abnormality 2nd LVH. No further angina/indigestion since admission; heparin DC'd 02/06/2023. --continue aspirin and Plavix --continue metoprolol; reduced due to excessive bradycardia. --added isosorbide and sublingual TN G p.r.n. --Blood pressure control --Cont Pepcid --Home soon? --JOHN delaney/ Dr. Marquez on discharge (2) CAD (coronary artery disease): Qualifiers: Associated angina: without angina Coronary Disease-Associated Artery/Lesion type: [place] artery [place] vs. transplanted heart: [place] heart Qualified Code(s): I25.10 - Atherosclerotic heart disease of [place] coronary artery without angina pectoris Code(s): I25.10 - Atherosclerotic heart disease of [place] coronary artery without angina pectoris Status: Chronic Assessment and Plan: Long history of CAD and multiple stents. --Cont DAPT, statin tx (3) Hyperlipidemia: Code(s): E78.5 - Hyperlipidemia, unspecified Status: Acute Assessment and Plan: Takes pravastatin, LDL cholesterol was 68 in June 2022. --Changed to hig-dose statin tx per guidelines, atorvastatin 40 mg daily. (4) Bradycardia: Code(s): R00.1 - Bradycardia, unspecified Status: Acute Assessment and Plan: Heart rate 44-54 BPM, a bit too low perhaps for a 77 y.o. --Reduced metop fr 25 mg BID to 12.5 mg BID. (5) Hypertension: Code(s): I10 - Essential (primary) hypertension Status: Acute Assessment and Plan: Blood pressure has not been at goal. Improving. --added a nitrate --Added hydralazine 25 mg TID (6) CKD stage 5 secondary to hypertension: Code(s): I12.0 - Hypertensive chronic kidney disease with stage 5 chronic kidney disease or end stage renal disease; N18.5 - Chronic kidney disease, stage 5 Status: Acute Assessment and Plan: Dr. Amin recommends an elective shunt placement. Subjective Date/time seen: 02/07/23 09:05 Interval history: Dayron Moser is a 77-year-old male with history of CAD and multiple stents followed by Dr. Marquez. We are following him for chest discomfort, probably ACS/ non STEMI. He was started on heparin drip on admission, 02/04/2023, for 48 Hrs. He also has a mild exacerbation of chronic kidney disease, stage 5. 02/05/2023: Continue aspirin, Plavix, heparin, metoprolol. Added isosorbide , changed pravastatin to atorvastatin.. Date of service 02/06/2023: Feels fine, no more indigestion. Remains hypertensive. Chronic sinus bradycardia heart rate 44- 54 ppm. Remains on room air. Heparin DC'd, metoprolol reduced. Repeat EKG from yesterday: no change, no progression. Date of service 02/07/2023: Doing well, no further indigestion. Enjoyed his breakfast pancakes. Up to chair and BR w/o SOB. Making urine. Heart rate a little better, 55-62. Creatinine up to 5.8. Review of Systems Review of Systems: No more CP/indigestion, tolerating bland diet, no SOB, abdom pain, bleeding; slept well Exam Const: General: cooperative, healthy appearing and comfortable; No confusion Orientation/consciousness: oriented to person, patient oriented x3 and No confusion Other: Lying supine, NAD HENMT: Face/Nose/Sinus: Normal nares present Mouth: Yes moist mucous membranes Eyes: General: appearance normal, both eyes and all related structures EOM: EOMs intact bilaterally Neck: Neck: supple and no JVD Resp: Effort & Inspection: normal respiratory effort
[2023-02-07 11:41] LABS: Glucose Point of Care 111 mg/dl (65-105)
--- NOTE | 2023-02-07 14:05 | PM.PNNEP ---
Progress Note: A&P Assessment and Plan (1) Chronic kidney disease, stage 5: Code(s): N18.5 - Chronic kidney disease, stage 5 Status: Acute Assessment and Plan: slow and steady progression over the last few months thought to be secondary to HTN, DM, vascular disease, and age-related change in spite of advanced disease, no critical electrolytes and no signs of volume overload or uremia so no urgent need to institute dialysis metabolic acidosis noted - on sodium bicarbonate plan outpatient AV access placement for eventual dialysis needs (2) Non-ST elevation [place] (NSTEMI): Code(s): I21.4 - Non-ST elevation (NSTEMI) myocardial infarction Status: Acute Assessment and Plan: Cardiology following no cardiac catheterization given advaned kidney disease continue aggressive medial management (3) Hypertension: Code(s): I10 - Essential (primary) hypertension Status: Chronic Assessment and Plan: reasonable control at this time follow trend of hemodynamics (4) Anemia: Code(s): D64.9 - Anemia, unspecified Status: Acute Assessment and Plan: probably related to CKD may benefit from outpatient ESAs follow H/H (5) Diabetes mellitus: Qualifiers: Diabetes mellitus type: type 2 Diabetes mellitus television technician insulin use: without television technician use Diabetes mellitus complication status: without complication Qualified Code(s): E11.9 - Type 2 diabetes mellitus without complications Code(s): E11.9 - Type 2 diabetes mellitus without complications Status: Chronic Assessment and Plan: follow accu-cheks glycemic control per hospitalists Will continue to follow. Subjective Date/time seen: 02/07/23 14:05 Interval history: Follow-up for advanced chronic kidney disease/chronic kidney disease stage 5. No new isses or problems voiced at the time of my visit; denies any shortness of breath or chest pain; no issues or events overnight; seems quite comfortable. Exam Narrative: General: elderly male in NAD Heart: normal S1 and S2; no rub Lungs: clear to auscultation Abdomen: soft, nontender, nondistended, positive bowel sounds Extremities: no cyanosis or clubbing; no edema Skin: warm and intact Objective Data Vital Signs Vital Signs: Vital Signs Temp Pulse Resp BP Pulse Ox O2 Del Method 02/07/23 14:00 48 L 02/07/23 12:00 56 L 02/07/23 12:00 Room Air 02/07/23 12:05 97.0 F L 53 L 20 132/49 L 100 02/07/23 10:00 54 L 02/07/23 08:00 62 02/07/23 08:00 Room Air 02/07/23 08:34 97.8 F 62 20 156/69 H 100 02/07/23 08:08 58 L 02/07/23 06:00 53 L 02/07/23 04:00 98.1 F 55 L 18 154/58 H 100 02/07/23 04:00 Room Air 02/07/23 04:00 51 L 02/07/23 02:00 54 L 02/07/23 00:00 Room Air 02/07/23 00:00 54 L 02/06/23 23:33 97.3 F L 59 L 18 131/44 L 100 02/06/23 22:00 54 L 02/06/23 20:00 Room Air 02/06/23 20:00 53 L 02/06/23 19:54 96.9 F L 55 L 16 145/54 H 100 02/06/23 18:00 52 L 02/06/23 17:07 50 L 02/06/23 16:53 96.5 F L 50 L 18 145/53 H 100 Intake/Output Intake/Output: Intake & Output 02/04/23 02/05/23 02/06/23 02/07/23 23:59 23:59 23:59 23:59 Intake Total 240 1390 1559 780 Balance 240 1390 1559 780 Meds/Results Medications: Active Medications Generic Name Dose Route Start Last Admin Trade Name Olvin PRN Reason Stop Dose Admin Acetaminophen 650 mg 02/04/23 12:23 Acetaminophen 325 Mg Tablet PO Q4H PRN Mild Pain (1-3) or Fever Hydrocodone Bitart/Acetaminophen 1 tab 02/04/23 12:23 Hydrocodone/Acetaminophen (*Crx) 5-325 Mg Tablet PO Q4H PRN Pain Rated 4-6 Amlodipine Besylate 10 mg 02/05/23 09:00 02/07/23 08:07 Amlodipine Besylate 5 Mg Tablet PO 10 mg DAILY DARIANA Administration Aspirin 81 mg
--- NOTE | 2023-02-07 14:05 | P.PNNP_ITS ---
Progress Note: A&P Assessment and Plan (1) Chronic kidney disease, stage 5: Code(s): N18.5 - Chronic kidney disease, stage 5 Status: Acute Assessment and Plan: * slow and steady progression over the last few months * thought to be secondary to HTN, DM, vascular disease, and age-related change * in spite of advanced disease, no critical electrolytes and no signs of volume overload or uremia so no urgent need to institute dialysis * metabolic acidosis noted - on sodium bicarbonate * plan outpatient AV access placement for eventual dialysis needs (2) Non-ST elevation DE (NSTEMI): Code(s): I21.4 - Non-ST elevation (NSTEMI) myocardial infarction Status: Acute Assessment and Plan: * Cardiology following * no cardiac catheterization given advaned kidney disease * continue aggressive medial management (3) Hypertension: Code(s): I10 - Essential (primary) hypertension Status: Chronic Assessment and Plan: * reasonable control at this time * follow trend of hemodynamics (4) Anemia: Code(s): D64.9 - Anemia, unspecified Status: Acute Assessment and Plan: * probably related to CKD * may benefit from outpatient ESAs * follow H/H (5) Diabetes mellitus: Qualifiers: Diabetes mellitus type: type 2 Diabetes mellitus half-way insulin use: without esl professor use Diabetes mellitus complication status: without com plication Qualified Code(s): E11.9 - Type 2 diabetes mellitus without comp lications Code(s): E11.9 - Type 2 diabetes mellitus without complications Status: Chronic Assessment and Plan: * follow accu-cheks * glycemic control per hospitalists Will continue to follow. Subjective Date/time seen: 02/07/23 14:05 Interval history: Follow-up for advanced chronic kidney disease/chronic kidney disease stage 5. No new isses or problems voiced at the time of my visit; denies any shortness of breath or chest pain; no issues or events overnight; seems quite comfortable. Exam Narrative: General: elderly male in NAD Heart: normal S1 and S2; no rub Lungs: clear to auscultation Abdomen: soft, nontender, nondistended, positive bowel sounds Extremities: no cyanosis or clubbing; no edema Skin: warm and intact Objective Data Vital Signs Vital Signs: Vital Signs Temp Pulse Resp BP Pulse Ox O2 Del Method 02/07/23 14:00 48 L 02/07/23 12:00 56 L 02/07/23 12:00 Room Air 02/07/23 12:05 97.0 F L 53 L 20 132/49 L 100 02/07/23 10:00 54 L 02/07/23 08:00 62 02/07/23 08:00 Room Air 02/07/23 08:34 97.8 F 62 20 156/69 H 100 02/07/23 08:08 58 L 02/07/23 06:00 53 L 02/07/23 04:00 98.1 F 55 L 18 154/58 H 100 02/07/23 04:00 Room Air 02/07/23 04:00 51 L 02/07/23 02:00 54 L 02/07/23 00:00 Room Air 02/07/23 00:00 54 L 02/06/23 23:33 97.3 F L 59 L 18 131/44 L 100 02/06/23 22:00 54 L 02/06/23 20:00 Room Air 02/06/23 20:00 53 L 02/06/23 19:54 96.9 F L 55 L 16 145/54 H 100 02/06/23 18:00 52 L 02/06/23 17:07 50 L 02/06/23 16:53 96.5 F L 50 L 18 145/53 H 100 Int
--- NOTE | 2023-02-07 15:42 | PM.DS ---
DS: Admitting Diagnosis Discharge Date 02/07/23 Admitting Diagnosis Chest pain DS: Discharge Diagnosis Discharge Diagnosis (1) Non-ST elevation NM (NSTEMI): Code(s): I21.4 - Non-ST elevation (NSTEMI) myocardial infarction Status: Acute (2) Chest pain: Code(s): R07.9 - Chest pain, unspecified Status: Acute (3) Acute kidney injury superimposed on CKD: Code(s): N17.9 - Acute kidney failure, unspecified; N18.9 - Chronic kidney disease, unspecified Status: Acute (4) CAD (coronary artery disease): Qualifiers: Coronary Disease-Associated Artery/Lesion type: pokagon artery [place] vs. transplanted heart: pokagon heart Associated angina: without angina Qualified Code(s): I25.10 - Atherosclerotic heart disease of pokagon coronary artery without angina pectoris Code(s): I25.10 - Atherosclerotic heart disease of pokagon coronary artery without angina pectoris Status: Chronic (5) Hypertension: Code(s): I10 - Essential (primary) hypertension Status: Acute (6) Diabetes mellitus: Qualifiers: Diabetes mellitus type: type 2 Diabetes mellitus rodent exterminator insulin use: without rodent exterminator use Diabetes mellitus complication status: without complication Qualified Code(s): E11.9 - Type 2 diabetes mellitus without complications Code(s): E11.9 - Type 2 diabetes mellitus without complications Status: Chronic (7) Bradycardia: Code(s): R00.1 - Bradycardia, unspecified Status: Acute (8) CKD stage 5 secondary to hypertension: Code(s): I12.0 - Hypertensive chronic kidney disease with stage 5 chronic kidney disease or end stage renal disease; N18.5 - Chronic kidney disease, stage 5 Status: Acute (9) BPH (benign prostatic hyperplasia): Code(s): N40.0 - Benign prostatic hyperplasia without lower urinary tract symptoms Status: Acute (10) Hyperlipidemia: Code(s): E78.5 - Hyperlipidemia, unspecified Status: Acute DS: Summary Hospital Course Reason for hospitalization: 77yo male with history of CAD with multiple stents, CKD and DM here for chest pain. Please see H&P for details. Hospital Course: Patient presents with symptoms concerning for unstable angina/ACS.? Troponins elevated but flat to 0.095. EKG showing ST-T wave changes in the lateral and high lateral leads. Consider LVH with strain vs non-STEMI/acute coronary syndrome. Cardiology consulted and appreciate their input. He was on a Heparin drip but this has been stopped. He was continued on ASA, Plavix, Lopressor, Lipitor and isosorbide. BP medications were adjusted. He alsoi was noted to have acute kidney injury superimposed on CKD. Baseline Cr around 4.4-4.9 earlier this year. Cr 5.5 on admission. He is close to needing dialysis. He has serum bicarb was 12 but no fluid overload and potassium was okay. Nephrology consulted and appreciate their input. Plan for outpatient evaluation for fistula. The patient's blood glucose was monitored with AccuCheks covering with sliding scale.? Hypoglycemia protocol was available as needed.?Sinus bradycardia noted on tele. Metoprolol dose was decreased. The patient was taking pravastatin. LDL cholesterol was 68 in June 2022.?He was changed to high-dose statin tx per guidelines with atorvastatin 40 mg daily. His chest pain resolved. he overall did well and wa able to be discharged home on 02/07/23. ? Status at Discharge Cognitive/behavioral status at discharge: stable Time Spent with Patient Time attestation: Total time spent providing and/or coordinating discharge services: 34 minutes Time spent: Greater than 30 minutes Exam Narrative: AF 97.0 132/49 48 20 100% ra Gen - NARD Chest - CTA bilaterally, nml RR CV - RRR S1/S2. Tele showing bradycardia with trend mostly at 50bpm Abd - Soft, NT/ND, Positive BS Ext - No pedal edema Psych - Nml mood and affect Skin - Warm and dry DS: Data Data Co
== END 2023-02-07 16:52 | disposition home or self-care (01) | DRG 281 ==
LOC: ANHED 11:15 → ANHIMU 13:16
PROVIDERS: Internal Medicine; Nurse Practitioner; Student in an Organized Health Care Education/Training Program; Admitting Provider Chiropractor; Emergency Provider Emergency Medicine; PCP Student in an Organized Health Care Education/Training Program; Visit Provider Internal Medicine
DX: I21.4 Non-ST elevation (NSTEMI) myocardial infarction (principal); I12.0 Hypertensive chronic kidney disease with stage 5 chronic kidney disease or end stage renal disease; N17.9 Acute kidney failure, unspecified; N18.5 Chronic kidney disease, stage 5; E11.22 Type 2 diabetes mellitus with diabetic chronic kidney disease; E11.42 Type 2 diabetes mellitus with diabetic polyneuropathy; E78.5 Hyperlipidemia, unspecified; I25.10 Atherosclerotic heart disease of native coronary artery without angina pectoris; I44.0 Atrioventricular block, first degree; N40.0 Benign prostatic hyperplasia without lower urinary tract symptoms; Z79.82 Long term (current) use of aspirin; Z95.5 Presence of coronary angioplasty implant and graft; Z79.02 Long term (current) use of antithrombotics/antiplatelets; Z85.828 Personal history of other malignant neoplasm of skin; Z98.49 Cataract extraction status, unspecified eye; Z90.49 Acquired absence of other specified parts of digestive tract
CPT/HCPCS: 36415; 71046; 76775; 80053; 80069; 82948; 83036; 83605; 83690; 83735; 84443; 84484; 85025; 85027; 85610; 85730; 93005; 96365; 96366; 99291; A9270; G0378; J1644

== ENCOUNTER 2023-02-21 16:17 | Inpatient (IN) | payer OTHER, SELFPAY ==
[2023-02-21] VITALS (23 sets, daily range): BP systolic 139–172; BP diastolic 70–81; PULSE 74–92; RESP 17–24; TEMP 36.4–37.3; O2SAT 97–100; BMI 22.0; BMI 20.7
--- NOTE | ~2023-02-21 | XR_ITS ---
EXAMINATION: XR chest 2V DATE: 02/21/2023 16:55 INDICATION: Chest pain. Shortness of breath. TECHNIQUE: Frontal and lateral views of the chest were obtained. COMPARISON: Chest 2 views 02/04/2023 FINDINGS: The chest demonstrates clear lungs without pneumonia, pleural effusion, or pneumothorax. Th e heart size is normal. IMPRESSION: 1. No acute cardiopulmonary disease. Reviewed, dictated and finalized at location A.
--- NOTE | 2023-02-21 16:22 | ECG_ITS ---
Measurements Intervals Leslie Rate: 94 P: 126 NE: 252 QRS: -24 QRSD: 115 T: 80 QT: 376 QTc: 471 Interpretive Statements SINUS RHYTHM WITH FIRST DEGREE AV BLOCK INCOMPLETE RIGHT BUNDLE BRANCH BLOCK ST-T WAVE ABNORMALITY IN ANTEROLAT/HIGH LAT LEADS ABNORMAL ECG COMPARED TO ECG 02/05/2023 15:26:04 SINUS RHYTHM NOW PRESENT INTRAVENTRICULAR CONDUCTION DELAY NOW PRESENT Electronically Signed On 02-21-2023 20:21:00 CDT by Mynor Hewitt D.O.
[2023-02-21 16:36] LABS: Basophils Absolute Auto 0.1 K/mm3 (0.0-0.1); Basophils Percent Auto 0.5 % (0.2-1.2); Eosinophils Absolute Auto 0.2 K/mm3 (0-0.3); Eosinophils Percent Auto 1.9 % (0-4.4); Hematocrit 27.9 % (42.0-52.0); Immature Granulocyte Absolute 0.05 K/mm3 (0.00-0.031); Immature Granulocyte Percent A 0.4 % (0-0.5); Lymphocytes Absolute Auto 1.18 K/mm3 (0.9-3.2); Lymphocytes Percent Auto 9.6 % (18.3-44.2); Mean Corpuscular HGB Conc 32.3 g/dl (32-36); Mean Corpuscular Hemoglobin 28.9 pg (26-34); Mean Corpuscular Volume 89.7 fl (80-100); Monocytes Absolute Auto 0.3 K/mm3 (0.1-0.6); Monocytes Percent Auto 2.1 % (2.6-8.5); Neutrophils Absolute Auto 10.5 K/mm3 (1.3-6.7); Neutrophils Percent Auto 85.5 % (45.5-73.1); Platelet Count Result 252 k/mm3 (150-375); Red Blood Count 3.11 M/mm3 (4.6-6.20); Red Cell Distribution Width 14.1 % (11.5-14.5); White Blood Count 12.2 K/mm3 (4.5-10.0)
[2023-02-21 16:51] LABS: Prothrombin Time 13.7 Seconds (11.1-14.7)
[2023-02-21 16:52] LABS: Partial Thromboplastin Time 31.3 SECONDS (22.3-36.8)
[2023-02-21 16:54] LABS: Alanine Aminotransferase 18 U/L (6-50); Albumin Level 3.6 g/dL (3.5-5.1); Alkaline Phosphatase 88 U/L (38-126); Anion Gap 14 mmol/L (8-16); Aspartate Amino Transferase 21 U/L (17-59); Bilirubin,Total 0.5 mg/dL (0.2-1.3); Blood Urea Nitrogen 65 mg/dL (9-20); Calcium 8.2 mg/dL (8.4-10.2); Carbon Dioxide 17 mmol/L (22-30); Chloride 107 mmol/L (98-107); Estimated CRCL calculation 9 ml/min; Estimated Glomerular Filt Rate 9; Glucose 114 mg/dL (65-110); Lipase 192 U/L (23-300); Potassium 3.8 mmol/L (3.4-5.0); Sodium 138 mmol/L (137-145)
[2023-02-21] MEDS: ASPIRIN 81 MG CHEWABLE TABLET 324 MG PO (17:08)
[2023-02-21] MEDS: NITROGLYCERIN OINTMENT 1 INCH DOSE TRANSDERM (17:37)
[2023-02-21] MEDS: HEPARIN SODIUM 5,000 UNITS/ML VIAL 4000 UNITS IV PUSH (17:37)
[2023-02-21] MEDS: PANTOPRAZOLE SODIUM IV 40 MG VIAL IV PUSH (17:37)
[2023-02-21] MEDS: HEPARIN SOD/D5W 100 UNITS/ML 25,000 UNITS/250 ML BAG 8 UNITS IV CONT (17:38)
--- NOTE | 2023-02-21 17:43 | ED.CHESTPAIN ---
HPI - Chest Pain General Chief Complaint: Chest Pain Stated Complaint: cp, n/v Time Seen by Provider: 02/21/23 16:31 Source: patient, EMS, RN notes reviewed and old records reviewed Mode of arrival: EMS Limitations: no limitations History of Present Illness HPI narrative: This is a 77 year old male with history of hypertension, hyperlipidemia, CAD s/p stent, chronic renal disease who presents for evaluation chest pain. Patient developed chest pain 1 hour ago. His pain is located midsternal pressure that radiates to his back. He had associated nausea, vomiting and weakness. Patient states he has been having chest pain intermittently Related Data Home Medications Medication Instructions Recorded Confirmed aspirin 81 mg chewable tablet 81 mg PO DAILY 05/22/20 02/18/23 clopidogrel 75 mg tablet 75 mg PO DAILY 05/22/20 02/18/23 tamsulosin 0.4 mg capsule 0.4 mg PO DAILY 02/04/23 02/18/23 Allergies Allergy/AdvReac Type Severity Reaction Status Date / Time Iodinated Contrast Media Allergy Intermediate Rash Verified 02/21/23 16:21 iodine Allergy Intermediate Rash Verified 02/21/23 16:21 poison felicia extract Allergy Mild RASH Verified 02/21/23 16:21 Review of Systems Constitutional: Constitutional: Reports weakness Cardiovascular: Cardiovascular: Reports chest pain, Denies syncope, Denies rapid heart rate, Denies irregular heart rhythm, Denies leg edema, Reports radiating jaw, neck or arm pain and Reports dyspnea Respiratory: Respiratory: Denies chest congestion, Denies hemoptysis, Denies excessive phlegm production and Denies dyspnea Gastrointestinal: Gastrointestinal: Denies abdominal pain, Denies hematochezia, Denies diarrhea, Reports nausea and Reports vomiting Genitourinary: Genitourinary: Denies hematuria, Denies dysuria, Denies penile discharge and Denies testicular pain Musculoskeletal: Musculoskeletal: Denies joint swelling, Denies loss of height and Denies muscle weakness Neurologic: Denies syncope, Denies focal weakness and Denies weakness [facility] Past Medical History Medical History BPH (benign prostatic hyperplasia) CAD (coronary artery disease) Cataracts, both eyes Maturing Chronic kidney disease, stage 4 (severe) Baseline creatinine around 2.5 Diabetes mellitus Most recent hemoglobin A1c between 6 and 7 according to patient report Diabetic peripheral neuropathy Stocking and glove Hyperlipidemia Hypertension Squamous cell carcinoma of scalp Surgical History Surgical History H/O inguinal hernia repair History of appendectomy History of coronary artery stent placement 6 stents placed in 2004 3 stents placed in [address] Michael Rodrigues History of tonsillectomy and adenoidectomy Hx of cataract extraction Family History Family History Father Hypertension Diabetes mellitus Acute myocardial infarction Congestive heart failure Mother Family history of Alzheimer's disease Daughter Breast cancer Diabetes mellitus Social History Social History Social History: Patient is but lives with his long-term girlfriend. He has a son who is 50 years old and a daughter who is now from cancer . He keeps busy by bowling. retired [employer] [place] Code status: Full code Surrogate decision maker: Juliana (girlfriend) Smoking status: Never smoker Second hand tobacco smoke exposure: Yes Additional smoking assessment comments: occasional pipe smoking when pt was around 19 years old, no current use Alcohol intake: never Substance use: never Lack of Transportation: No Lack of Food: Never True Current Housing: I Have Housing Concerned About Future Housing: No Difficulty Paying Gas/Electric Bills: No Difficulty Paying for Meds: No Curren
--- NOTE | 2023-02-21 18:18 | PC.NURSE ---
Patient report given to REBECCA Mcgovern. All questions answered and care of patient transferred.
[2023-02-21] MEDS: METOPROLOL TARTRATE INJ 5 MG/5 ML VIAL IV PUSH (18:35)
--- NOTE | 2023-02-21 20:17 | ADMGEN ---
This patient, Dayron Moser, was admitted to IMU Room 206-01 at 2015. Patient/family oriented to hospital policies and general routines including ID bracelet, bed and alarms, visiting hours, pain management, procedures, bathroom and other care routines, personal items, smoking policy, room service/diet, and visiting hours. Information on how to activate the Rapid Response Team has been discussed. Patient/Family are encouraged to report perceived risks to care and to ask questions if they do not understand what they are told or what they should do.
--- NOTE | 2023-02-21 21:02 | PM.IMHP ---
H&P: HPI History of Present Illness Date/Time: 02/21/23 21:02 Chief Complaint: Chest pain Narrative: 77-year-old male with past medical history of stage 5 chronic kidney disease, essential hypertension, type 2 diabetes mellitus and coronary artery disease with a reported history of 9 cardiac stents who presented to the ER with chest pain. The patient reports that he has is been sitting at home resting. When he got up and took a few steps across the room he had sudden substernal chest pain that radiated through to his back. The pain was severe in intensity and dropped him to his knees. The pain lasted for 45 minutes at home despite 2 she sprays of nitro. He had 1 episode of emesis following this chest pain. He reported that is nitro did help somewhat with his pain. Triage noted stated the patient was pain-free on arrival to the ER. However the patient reports that he has not felt good since the episode happened. Shortly after arriving to the IMU the patient again had an episode of substernal chest pain that radiates through to his back. The pain was very similar to when he had his prior episodes of angina requiring stents to be placed. He denied any radiation of the pain up to his jaw or down his arm. He was diaphoretic at the time of my evaluation. He did have some shortness of breath with the symptoms. It sounds like he does have a chronic intermittent cough that is unchanged from baseline. He has not been having any lower extremity swelling or orthopnea. He does have chronic episodes of belching but this is unchanged from baseline. He denies any fevers or chills. He was afebrile if the above evaluation. At the time of my evaluation the patient did have a palpable bladder. He states that it takes him for ever to empty his bladder. They will take him sometimes most of the night and multiple trips to the bathroom in order for him to feel like his bladder has emptied. He has been taking all of his medications as directed including is 81 mg aspirin Plavix atorvastatin and antihypertensives. He received full-dose aspirin in the ER. When I arrived the patient's bedside it was shortly after he had received 4 mg of morphine. He had 1 in of nitropaste in place. He was still having 4/10 chest pain. An additional order for 4 mg of morphine was ordered. Repeat EKG was obtained which demonstrated significant ST depressions V3 through V6 and new T-wave inversions in lead 1 and lead 2. Review of Systems Review of Systems: 12 systems were reviewed with pertinent positives and negatives per HPI. Except as documented in the HPI, all other systems were reviewed and are negative. [facility] Past Medical History Medical History (Updated 02/22/23 @ 02:39 by Radha Pardo DO) BPH (benign prostatic hyperplasia) CAD (coronary artery disease) Cataracts, both eyes Maturing Chronic kidney disease, stage 5 Diabetes mellitus A1c 5.4% 02/05/2023 Diabetic peripheral neuropathy Stocking and glove Hyperlipidemia Hypertension Squamous cell carcinoma of scalp Surgical History Surgical History H/O inguinal hernia repair History of appendectomy History of coronary artery stent placement 6 stents placed in 2004 3 stents placed in [address] Michael Rodrigues History of tonsillectomy and adenoidectomy Hx of cataract extraction Family History Family History Father Hypertension Diabetes mellitus Acute myocardial infarction Congestive heart failure Mother Family history of Alzheimer's disease Daughter Breast cancer Diabetes mellitus Social History Social History (Updated 02/22/23 @ 02:30 by Radha Pardo DO) Social History: Patient is but lives with his long-term girlfriend. He has a son who is 50 years old and a daughter who is now from cancer . He keeps busy by [employer]. He retired from
[2023-02-21] MEDS: MORPHINE SULFATE (*CRX) 4 MG/ML INJ IV PUSH ×2 (21:10→22:06)
--- NOTE | 2023-02-21 21:44 | ECG_ITS ---
Measurements Intervals [place] Rate: 83 P: 58 WV: 276 QRS: -11 QRSD: 119 T: 141 QT: 390 QTc: 459 Interpretive Statements SINUS RHYTHM WITH FIRST DEGREE AV BLOCK VENTRICULAR PREMATURE COMPLEXES ST-T WAVE ABNORMALITY IN ANTEROLAT/HIGH LAT LEADS- CONSIDER ISCHEMIA ABNORMAL ECG COMPARED TO ECG 02/21/2023 16:19:21 NO SIGNIFICANT CHANGES Electronically Signed On 02-22-2023 6:41:09 CDT by Mynor Hewitt D.O.
[2023-02-21] MEDS: LIDOCAINE HCL 2% GEL UROJET 10 ML PKG MUCOUS MEM (22:24)
[2023-02-21] MEDS: CLOPIDOGREL BISULFATE 300 MG TABLET 600 MG PO (22:45)
[2023-02-21] MEDS: predniSONE 40 MG, predniSONE 10 MG 50 MG PO (22:52)
--- NOTE | 2023-02-21 23:02 | PC.NURSE ---
Patient transferred to ICU 4 on 02/21/23 at 2300 via bed.
[2023-02-21] MEDS: NITROGLYCERIN/D5W 200 MCG/ML 50 MG/250 ML BTL IV CONT (23:09)
--- NOTE | 2023-02-21 23:28 | PC.NURSE ---
This patient, Dayron Moser, was transferred to [ICU 4] on 02/21/23 at 2328. Personal belongings sent with patient. Report given to [REBECCA Rodriguez]. Appropriate documentation sent with patient.
[2023-02-22] VITALS (48 sets, daily range): BP systolic 109–139; BP diastolic 67–86; PULSE 60–91; RESP 11–21; TEMP 36.3–36.7; O2SAT 89–100
--- NOTE | 2023-02-22 | ECHO_ITS ---
Patient Info Name: Dayron Moser Age: 77 years : 1945 Gender: Male Ht: 69 in Wt: 138 lbs BSA: 1.74 m2 HR: 72 bpm BP: 131 / 80 mmHg Heart Rhythm: Sinus Rhythm Technical Quality: Good Exam Date: 02/22/2023 10:43 AM Exam Location: [facility] Pulmonary Patient Status: Inpatient Admit Date: 02/21/2023 Staff Ordering Physician: Nevaeh Holly MD Survey Worker: Verena Clayton RDCS Attending Provider: Nevaeh Holly MD Exam Type: CA echo doppler color flow Study Info Indications I21.4 - Non-ST elevation (NSTEMI) myocardial infarction Complete two-dimensional, color flow and Doppler transthoracic echocardiogram is performed. Summary 1. Complete two-dimensional, color flow and Doppler transthoracic echocardiogram is performed. 2. Left ventricular chamber dimension is normal. 3. Left ventricular systolic function is mildly reduced, estimated at 50-55% with severe hypokinesis of the apex, apical septal, apical lateral, and moderate hypokinesis of the anterior wall. 4. There is moderately increased left ventricular wall thickness. 5. The left ventricular diastolic function is grade I diastolic dysfunction. 6. There is mild aortic valve stenosis with a peak velocity of 143 cm/s, mean gradient of 5 mmHg, and aortic valve area of 1.5 cm2. 7. There is mild aortic valve regurgitation. 8. There is mild mitral valve regurgitation. 9. There is mild tricuspid valve regurgitation. 10. No pulmonary hypertension, estimated pulmonary arterial systolic pressure is 32 mmHg. Left Ventricle Left ventricular chamber dimension is normal. Left ventricular systolic function is mildly reduced, estimated at 50-55% with severe hypokinesis of the apex, apical septal, apical lateral, and moderate hypokinesis of the anterior wall. There is moderately increased left ventricular wall thickness. The left ventricular diastolic function is grade I diastolic dysfunction. Right Ventricle Right ventricular chamber dimension is normal. Right ventricular systolic function is normal. Left Atria Left atrial chamber dimension is mildly enlarged. Right Atria Right atrial chamber dimension is normal. Aortic Valve The aortic valve is trileaflet. There is mild aortic valve stenosis with a peak velocity of 143 cm/s, mean gradient of 5 mmHg, and aortic valve area of 1.5 cm2. There is mild aortic valve regurgitation. There is mild aortic valve calcification. Pulmonic Valve The pulmonic valve is not well visualized. There is mild pulmonic regurgitation. Mitral Valve The mitral valve has normal leaflets. There is mild mitral valve regurgitation. The mitral valve annulus is mildly calcified. Tricuspid Valve The tricuspid valve leaflets are normal. There is mild tricuspid valve regurgitation. No pulmonary hypertension, estimated pulmonary arterial systolic pressure is 32 mmHg. Pericardium/Pleural The pericardium appears normal. Inferior Vena Cava Normal inferior vena cava with >50% collapse upon inspiration consistent with normal right atrial pressure, 5 mmHg. Aorta The aortic root size at the sinus of Valsalva is normal. There is mild aortic atherosclerosis. Left Ventricular Outflow Tract Name Value Normal LVOT 2D LVOT Diameter 2.0 cm LVOT Doppler
[2023-02-22 00:02] LABS: Partial Thromboplastin Time 162.5 SECONDS (22.3-36.8)
[2023-02-22] MEDS: MORPHINE SULFATE (*CRX) 4 MG/ML INJ IV PUSH (00:20)
[2023-02-22 02:00] LABS: Anion Gap 15 mmol/L (8-16); Blood Urea Nitrogen 63 mg/dL (9-20); Calcium 8.1 mg/dL (8.4-10.2); Carbon Dioxide 14 mmol/L (22-30); Chloride 108 mmol/L (98-107); Estimated CRCL calculation 8 ml/min; Estimated Glomerular Filt Rate 9; Glucose 125 mg/dL (65-110); Sodium 137 mmol/L (137-145)
[2023-02-22 03:53] LABS: Basophils Percent Auto 0.2 % (0.2-1.2); Hematocrit 29.6 % (42.0-52.0); Hemoglobin 9.2 g/dL (14.0-18.0); Immature Granulocyte Absolute 0.07 K/mm3 (0.00-0.031); Immature Granulocyte Percent A 0.5 % (0-0.5); Lymphocytes Absolute Auto 0.79 K/mm3 (0.9-3.2); Lymphocytes Percent Auto 5.4 % (18.3-44.2); Mean Corpuscular HGB Conc 31.1 g/dl (32-36); Mean Platelet Volume 9.9 fl (7.4-10.4); Monocytes Absolute Auto 0.2 K/mm3 (0.1-0.6); Monocytes Percent Auto 1.5 % (2.6-8.5); Neutrophils Absolute Auto 13.4 K/mm3 (1.3-6.7); Neutrophils Percent Auto 92.4 % (45.5-73.1); Platelet Count Result 225 k/mm3 (150-375); Red Blood Count 3.29 M/mm3 (4.6-6.20); White Blood Count 14.5 K/mm3 (4.5-10.0)
[2023-02-22 04:08] LABS: Albumin Level 3.7 g/dL (3.5-5.1); Anion Gap 16 mmol/L (8-16); Blood Urea Nitrogen 63 mg/dL (9-20); Calcium 8.2 mg/dL (8.4-10.2); Carbon Dioxide 14 mmol/L (22-30); Chloride 107 mmol/L (98-107); Estimated CRCL calculation 8 ml/min; Estimated Glomerular Filt Rate 9; Glucose 134 mg/dL (65-110); Phosphorus 6.1 mg/dL (2.5-4.5); Potassium 4.2 mmol/L (3.4-5.0); Sodium 137 mmol/L (137-145)
[2023-02-22] MEDS: predniSONE 40 MG, predniSONE 10 MG 50 MG PO (04:46)
--- NOTE | 2023-02-22 06:00 | ECG_ITS ---
Measurements Intervals [place] Rate: 89 P: TN: 0 QRS: -17 QRSD: 110 T: 140 QT: 421 QTc: 514 Interpretive Statements SINUS OR ECTOPIC ATRIAL RHYTHM WITH MARKED FIRST DEGREE AV BLOCK LEFT VENTRICULAR HYPERTROPHY AND ST-T CHANGE ST-T WAVE ABNORMALITY IN ANTEROLAT/HIGH LAT LEADS- CONSIDER ISCHEMIA BASELINE ARTIFACT- I, II, III, AVL ABNORMAL ECG COMPARED TO ECG 02/21/2023 21:49:56 NO SIGNIFICANT CHANGES Electronically Signed On 02-22-2023 8:07:29 CDT by Mynor Hewitt D.O.
[2023-02-22 07:32] LABS: Partial Thromboplastin Time 89.5 SECONDS (22.3-36.8)
[2023-02-22] MEDS: CLOPIDOGREL BISULFATE 75 MG TABLET PO (08:20)
[2023-02-22] MEDS: METOPROLOL TARTRATE 12.5 MG TABLET PO ×2 (08:20→17:47)
[2023-02-22] MEDS: ISOSORBIDE MONONITRATE 30 MG TAB.ER.24H PO (08:20)
[2023-02-22] MEDS: PRAVASTATIN SODIUM 20 MG TABLET 40 MG PO (08:21)
[2023-02-22] MEDS: TAMSULOSIN HCL 0.4 MG CAPSULE PO (08:21)
[2023-02-22] MEDS: ATORVASTATIN 40 MG TABLET PO (08:21)
[2023-02-22] MEDS: ASPIRIN 81 MG CHEWABLE TABLET PO (08:21)
[2023-02-22] MEDS: SODIUM BICARBONATE TAB 650 MG TABLET 1300 MG PO ×2 (08:21→17:47)
--- NOTE | 2023-02-22 09:32 | WPDCNINT ---
Assessment and Plan Assessment and plan (1) Non-STEMI (non-ST elevated myocardial infarction): Code(s): I21.4 - Non-ST elevation (NSTEMI) myocardial infarction Status: Acute Assessment and Plan: Patient with chest pain radiating to the back, patient states in he has had the symptoms with his prior episodes of angina, NSTEMI with multiple stents. EKG in the ER showed ST depressions -patient continued to have chest pain in the intermediate Unit and was placed on nitroglycerin infusion and transferred to the ICU for further management. - troponin levels increase through the night and were as follow 0.190---> 1.790---> 6.510---> 13.10. -discussed with Cardiology, we taken from coronary angiogram today -remains on heparin infusion, aspirin, statin, clopidogrel, Imdur and metoprolol -urology following the patient (2) Chronic kidney disease, stage 5: Code(s): N18.5 - Chronic kidney disease, stage 5 Status: Acute Assessment and Plan: Patient has a history of chronic kidney disease, follows with Dr. Amin -he has been advised for dialysis per Nephrology (3) CAD (coronary artery disease): Qualifiers: Associated angina: without angina Coronary Disease-Associated Artery/Lesion type: augustine artery [place] vs. transplanted heart: augustine heart Qualified Code(s): I25.10 - Atherosclerotic heart disease of augustine coronary artery without angina pectoris Code(s): I25.10 - Atherosclerotic heart disease of augustine coronary artery without angina pectoris Status: Chronic Assessment and Plan: Has a history of coronary artery disease -follows with Dr. Marquez (4) Hypertension: Qualifiers: Hypertension type: primary hypertension Qualified Code(s): I10 - Essential (primary) hypertension Code(s): I10 - Essential (primary) hypertension Status: Chronic Assessment and Plan: Blood pressures have been stable, will continue to monitor Plan DVT prophylaxis: Heparin infusion Stress ulcer prophylaxis: Protonix Nutrition: NPO for angiogram Code Status: Full code Critical Care Time Spent: 48 minutes 02/22: Discussed with patient and his son and updated them with patient's condition and plan of care. Initially he wanted to think about the coronary angiogram, then once again we discussed with him along with the iron carrier he is agreeable. They are aware that his chest pain is due to a cardiac event. They also aware that he has chronic kidney disease and is following the retoucher was also recommended dialysis. I did tell them that we will continue to monitor his kidney functions post angiogram. Due to a high probability of clinically significant, life threatening deterioration, the patient required my highest level of preparedness to intervene emergently and I personally spent this critical care time directly and personally managing the patient. This critical care time included obtaining a history; examining the patient; pulse oximetry; ordering and review of studies; arranging urgent treatment with development of a management plan; evaluation of patient's response to treatment; frequent reassessment; and discussions with other providers. It was exclusive of separately billable procedures and treating other patients and teaching time. Please see Assessment and Plan section and the rest of the note for further information on patient assessment and treatment This dictation may have been done utilizing a voice recognition system. Attempts have been made to correct errors. However, there may be uncorrected grammatical, spelling, and recognitions errors present. Air Brush Decorator Consult Note Consult date: 02/22/23 Reason for consult: NSTEMI, chest pain requiring nitroglycerin infusion HPI: Dayron Moser is a 77 year old male with past medical history of chronic kidney disease stage 5, diabetes, coronary artery disease multiple with 6 stents in 2004 and 3 stents in 2005
--- NOTE | 2023-02-22 11:15 | PM.CNNEP ---
Assessment and Plan Assessment and plan (1) Chronic kidney disease, stage 5: Code(s): N18.5 - Chronic kidney disease, stage 5 Status: Acute Assessment and Plan: creatinine has been running 5.2 - 5.8mg/dl for the last couple of months creatinine up to 6.0mg/dl on admission slow and steady progression over the last several months thought to be secondary to HTN, DM, vascular disease, and age-related change in spite of advanced disease, no critical electrolytes and no signs of volume overload or uremia so no urgent need to institute dialysis metabolic acidosis noted - on sodium bicarbonate initial plan was outpatient AV access placement for eventual dialysis needs however, given current circumstances, he may need dialysis sooner and he is aware of this... follow trend of repeat labs and UOP (2) Non-STEMI (non-ST elevated myocardial infarction): Code(s): I21.4 - Non-ST elevation (NSTEMI) myocardial infarction Status: Acute Assessment and Plan: based on symptoms, known history, EKG changes, and trend of troponins Cardiology consulted -- tentative plan for cardiac catheterization today suspect further recommendations depending of results of cardiac catheterization currently on heparin gtt, ASA, plavix, imdur, and metoprolol (3) Hypertension: Qualifiers: Hypertension type: primary hypertension Qualified Code(s): I10 - Essential (primary) hypertension Code(s): I10 - Essential (primary) hypertension Status: Chronic Assessment and Plan: reasonable control at this time follow trend of hemodyanmics (4) Anemia: Code(s): D64.9 - Anemia, unspecified Status: Chronic Assessment and Plan: likely secondary to advanced CKD may need IRINA check iron studies follow trend of H/H (5) Diabetes mellitus: Qualifiers: Diabetes mellitus complication status: without complication Diabetes mellitus director long term care insulin use: without director long term care use Diabetes mellitus type: type 2 Qualified Code(s): E11.9 - Type 2 diabetes mellitus without complications Code(s): E11.9 - Type 2 diabetes mellitus without complications Status: Chronic Assessment and Plan: follow accu-cheks appear well controlled without medications Long extensive discussion (> 25 minutes(n with the patient as well as his family at bedside regarding his advanced chronic kidney disease and the concern that this cardiac event (NSTEMI) and subsequent planned cardiac catheterization may worsen his kidney function to the point of requiring renal replacement therapy/dialysis. The patient is well aware of this fact as well. He is in agreement to proceeding with cardiac catheterization. I will continue to follow the patient with you while he remains hospitalized and make further recommendations as needed. Thank you for allowing me to participate in care this patient. History of Present Illness Reason for Consult Consult date: 02/22/23 Reason for consult: chronic renal failure Chief Complaint Chief complaint: nstemi History of Present Illness Narrative: The patient is a 77-year-old male with a past medical history as outlined below who presented to [facility] Emergency room yesterday evening with complaints of chest pain. The patient was apparently sitting in a chair at home when he got up and took a few steps at had sudden onset of substernal chest pain that radiated through to his back. He rated the pain as 10 at 10 in severity and was so severe that it apparently dropped me to my knees. The pains last about 45 minutes while he was at home following 2 sprays of nitroglycerin. He did have an associated episode of vomiting with the chest pain. Given his known history of coronary artery disease and his recent hospitalizaion here at [facility] for chest pain symptoms, he came to the ER for further assessment. By report, on arrival to
--- NOTE | 2023-02-22 11:15 | P.CONNP_ITS ---
Assessment and Plan Assessment and plan (1) Chronic kidney disease, stage 5: Code(s): N18.5 - Chronic kidney disease, stage 5 Status: Acute Assessment and Plan: * creatinine has been running 5.2 - 5.8mg/dl for the last couple of months * creatinine up to 6.0mg/dl on admission * slow and steady progression over the last several months * thought to be secondary to HTN, DM, vascular disease, and age-related change * in spite of advanced disease, no critical electrolytes and no signs of volume overload or uremia so no urgent need to institute dialysis * metabolic acidosis noted - on sodium bicarbonate * initial plan was outpatient AV access placement for eventual dialysis needs * however, given current circumstances, he may need dialysis sooner and he is aware of this... * follow trend of repeat labs and UOP (2) Non-STEMI (non-ST elevated myocardial infarction): Code(s): I21.4 - Non-ST elevation (NSTEMI) myocardial infarction Status: Acute Assessment and Plan: * based on symptoms, known history, EKG changes, and trend of troponins * Cardiology consulted -- tentative plan for cardiac catheterization today * suspect further recommendations depending of results of cardiac catheterization * currently on heparin gtt, ASA, plavix, imdur, and metoprolol (3) Hypertension: Qualifiers: Hypertension type: primary hypertension Qualified Code(s): I10 - Essential (primary) hypertension Code(s): I10 - Essential (primary) hypertension Status: Chronic Assessment and Plan: * reasonable control at this time * follow trend of hemodyanmics (4) Anemia: Code(s): D64.9 - Anemia, unspecified Status: Chronic Assessment and Plan: * likely secondary to advanced CKD * may need IRINA * check iron studies * follow trend of H/H (5) Diabetes mellitus: Qualifiers: Diabetes mellitus complication status: without complication Diabetes mellitus watermaster insulin use: without retirement use Diabetes mellitus type: type 2 Qualified Code(s): E11.9 - Type 2 diabetes mellitus without compli cations Code(s): E11.9 - Type 2 diabetes mellitus without complications Status: Chronic Assessment and Plan: * follow accu-cheks * appear well controlled without medications Long extensive discussion (> 25 minutes(n with the patient as well as his family at bedside regarding his advanced chronic kidney disease and the concern that this cardiac event (NSTEMI) and subsequent planned cardiac catheterization may worsen his kidney function to the point of requiring renal replacement therapy/dialysis. The patient is well aware of this fact as well. He is in ag reement to proceeding with cardiac catheterization. I will continue to follow the patient with you while he remains hospitalized and make further recommendations as needed. Thank you for allowing me to participate in care this patient. History of Present Illness Reason for Consult Consult date: 02/22/23 Reason for consult: chronic renal failure Chief Complaint Chief complaint: nstemi History of Present Illness Narrative: The patient is a 77-year-old male with a past medical history as outlined below who presented to [facility] Emergency room yesterday evening with complaints of chest pain. The patient was apparently sitting in a chair at home when he got up and took a few steps at had sudden onset of substernal chest pain that radiated through to
--- NOTE | 2023-02-22 11:26 | PC.NURSE ---
Patient to CCL accompanied by Air Shovel Operator nursing staff.
--- NOTE | 2023-02-22 11:26 | PM.CNCAR ---
Assessment and Plan Assessment and plan (1) Non-STEMI (non-ST elevated myocardial infarction): Code(s): I21.4 - Non-ST elevation (NSTEMI) myocardial infarction Status: Acute Assessment and Plan: Lengthy discussion with the patient this morning regarding NSTEMI along with implications/complications that could arise from myocardial infarction. Recommended cardiac cath, extensive discussion regarding procedure details, risks vs benefits, alternative management options, and lengthy discussion of contrast induced nephropathy and risk of dialysis given his advanced CKD. Initially, patient wanted some time to think about whether he wanted to undergo procedure. On reassessment later in the morning with repeat discussion with patient and his family at bedside, patient agreeable to proceed with cath. Will plan for cath today. Continue to trend troponins until peak. Continue Heparin drip. Continue ASA 81mg once daily. Given Plavix 600mg x 1 02/21, continue with Plavix 75mg. Patient with iodine allergy - given Prednisone 50mg x 1 02/21, with repeat dose 02/22 AM, will given IV Solumedrol 40mg and Benadryl IV 50mg. Further recommendations pending results of cardiac catheterization. Echocardiogram has been ordered and pending. (2) Chronic kidney disease, stage 5: Code(s): N18.5 - Chronic kidney disease, stage 5 Status: Acute Assessment and Plan: Monitor renal function closely, Nephrology has been consulted. (3) CAD (coronary artery disease): Qualifiers: Coronary Disease-Associated Artery/Lesion type: morongo artery [place] vs. transplanted heart: morongo heart Associated angina: without angina Qualified Code(s): I25.10 - Atherosclerotic heart disease of morongo coronary artery without angina pectoris Code(s): I25.10 - Atherosclerotic heart disease of morongo coronary artery without angina pectoris Status: Chronic Assessment and Plan: As noted above, cardiac cath today. Medical management as noted above. Plan Prognosis is guarded given degree of NSTEMI, co-morbidities. Recommendations/plan discussed with Engineering Group Leader, Dr. Thrasher. History of Present Illness History of Present Illness Consult date/time: 02/22/23 11:26 Requesting physician: Lisa Sanches MD Consult reason: chest pain and Other (NSTEMI) Reason For Visit: nstemi Narrative: We are consulted for NSTEMI. This is a patient who follows with Dr. Marquez. Patient is a 77-year-old male with coronary artery disease s/p multiple stents (2 stents in the OM, 2 stents in the mid LAD, 1 stent in the distal LAD, 1 stent in the diagonal in 2004; in 2005 he received 1 stent in the diagonal, 1 stent in the circumflex). Echo in October 2022 showed EF 60-65%, mild LVH, mild aortic stenosis. He also has significant stage V kidney disease (not on dialysis yet). Patient was recently admitted here at [facility] end of January for NSTEMI and chest pain. He did have elevated troponins at that time, but were low and flat. He was treated medically with Heparin drip, ASA, and Plavix (which he was already taking at home). Antianginal therapy was uptitrate. He felt better with medical management, therefore, cardiac catheterization was not pursued at that hospitalization due to his severe CKD. Patient followed up with Dr. Maqruez in clinic afterwards, where Dr. Marquez had extensive discussion with the patient regarding his coronary artery disease and recent NSTEMI and had recommended cardiac catheterization. Patient declined cath due to fear of worsening renal function with contrast load from the cath. Patient presented evening with chest pain. Initial EKG on presentation showed sinus rhythm with STTW changes with ST depressions in the anterolateral leads. Patient was initially admitted to the IMU, but had worsening chest pain overnight. Repeat EKG again with ST depressions in the anterolateral leads. He was transferred to the ICU for Nitroglycerin drip. He did have
--- NOTE | 2023-02-22 12:50 | PC.NURSE ---
Patient returned from catheter finisher and inspector. Dr. Vidal discussing results with patient's family.
--- NOTE | 2023-02-22 13:54 | WPDPN ---
Progress Note: A&P Assessment and Plan (1) Non-STEMI (non-ST elevated myocardial infarction): Code(s): I21.4 - Non-ST elevation (NSTEMI) myocardial infarction Status: Acute (2) CAD (coronary artery disease): Qualifiers: Coronary Disease-Associated Artery/Lesion type: morongo artery [place] vs. transplanted heart: morongo heart Associated angina: without angina Qualified Code(s): I25.10 - Atherosclerotic heart disease of morongo coronary artery without angina pectoris Code(s): I25.10 - Atherosclerotic heart disease of morongo coronary artery without angina pectoris Status: Chronic (3) Benign prostatic hyperplasia with urinary retention: Code(s): N40.1 - Benign prostatic hyperplasia with lower urinary tract symptoms; R33.8 - Other retention of urine Status: Acute (4) Hypertension: Qualifiers: Hypertension type: primary hypertension Qualified Code(s): I10 - Essential (primary) hypertension Code(s): I10 - Essential (primary) hypertension Status: Chronic Plan The patient presented to the ER with active chest pain. He is having a non-STEMI/ACS. he has history of coronary artery disease. His initial troponin was higher than previous. His EKG demonstrated new EKG changes compared to prior with some ST depression in anterior lateral leads. And T-wave inversions in lead 1 and 2. Patient is still having persistent and worsening chest pain despite nitropaste and morphine. I contacted the fabricator industrial furnace that is on for interventional services after repeat EKG demonstrated worsening changes in V3 V6 and lead 1 and 2. The patient does have known contrast allergy and worsening stage 5 chronic kidney disease. Subsequently patient was transferred to the ICU for nitro drip. The patient was loaded with 600 mg of Plavix and was continued on the heparin drip that had been started in the ER. The patient was provided with morphine q.1 hour as needed for intractable chest pain. After titration of the nitro drip upward patient's chest pain is now down to a 1. The patient's repeat troponin did demonstrate troponin of 6. The patient will be made NPO at midnight. He was given prednisone for his reported contrast allergy. Will await further recommendations from Cardiology Services. The patient does have acute on chronic kidney disease. The patient has had a progressive worsening of his chronic kidney disease over the last several months. Folic patient has chronic kidney disease stage 5 not yet requiring hemodialysis. At the time of my evaluation the patient did have a palpable bladder. Bladder scan was performed and demonstrated almost 500 mL of urine. When I went to re-evaluate the patient after catheter placement the patient had total 800 mL of urine output. Will continue patient's home Flomax. The patient would likely benefit from the additional medications for his BPH. Will monitor urine output and creatinine closely. CBC and BMP have been ordered for a.m.. Coags will be ordered per heparin drip protocol. Will provide adequate pain medication and nitrates and oxygen as needed for patient's acute coronary syndrome. Will continue the patient's home sodium bicarb 4s chronic acidosis from his renal failure. Will continue home antihypertensives and optimize blood pressure control to reduce cardiac strain. Patient was normotensive at the time of my evaluation. 02/22/2023 interval history: patient presented with CP is found to have NSTEMI and being treated with heparin drip, aspring, plavix, and patient is seen by fabricator industrial furnace and will have cardiac cath today, patient stats currently feeling better and CP is resolved, will monitor and will follow up. Subjective Date/time seen: 02/22/23 13:54 Interval history: Chest pain Narrative: 77-year-old male with past medical history of stage 5 chronic kidney disease, essential hypertension, type 2 diabetes mellitus and coronary artery dise
[2023-02-22] MEDS: SODIUM CHLORIDE 0.9% IV 1,000 ML 125 ML IV CONT (14:32)
[2023-02-22 14:53] LABS: INR 1.1; Prothrombin Time 14.7 Seconds (11.1-14.7)
[2023-02-22 14:54] LABS: Partial Thromboplastin Time 35.7 SECONDS (22.3-36.8)
--- NOTE | 2023-02-22 16:34 | WPDCARDPROC ---
Cardiac Cath Procedure Note Date of procedure:: 02/22/23 Performing physician:: CATHETERIZATION LABORATORY REPORT Procedure Date: 02/22/2023 Fresh Work Inspector: Natasha Vidal M.D., [facility]? Referring Physician: Natasha Vidal M.D. ? Anesthesia: No IV sedation was administered for this procedure. Given allergy to iodine, premedication for contrast allergy was administered. Procedure start time: 11:50 Procedure end time: 12:22 Total procedure time: 32 minutes RN for case: Nano Rodriguez Pre-op Diagnosis: NSTEMI, Coronary artery disease Post-op Diagnosis: 1. Multivessel coronary artery disease 2. Elevated left ventricular end-diastolic pressure of 31mmHg Procedure(s): 1. Ultrasound-guided access of the right common femoral artery 2. Ultrasound-guided access of the left common femoral artery 3. Coronary angiography 4. Left heart cath Access Site: Right and left common femoral arteries Brief History and Clinical Indications: Patient is a 77 year old male with coronary artery disease with multiple stents, CKD stage V who is referred for cardiac catheterization for NSTEMI. All risks, benefits and alternatives to left heart catheterization with or without percutaneous coronary intervention was discussed at length with the patient. Risk of complications including but not limited to bleeding, infection, arrhythmia, stroke, worsening kidney function, blood loss, groin hematoma, limb loss, emergency coronary artery bypass grafting, and even were discussed with the patient and all questions were answered. The patient understood and wished to proceed. Time out called, patient name, date of , medical record number, allergies, procedure performed, identify Fresh Work Inspector, patient and staff member concurred with accurate data, procedure carried on. Findings: LEFT HEART CATHETERIZATION FINDINGS: 1. Left main: Large caliber vessel. The left main coronary artery is widely patent without any significant obstructive disease. 2. Left anterior descending: Multiple stents are seen in the proximal-mid LAD along with a stent in the mid-distal portion of the LAD. The LAD has significant diffuse disease throughout. The apical LAD has a 90% stenosis. Stent seen in the proximal first diagonal vessel. There is significant obstructive in-stent restenosis of the Diagonal branch. The mid portion of the Diagonal has a 90% stenosis, with diffuse disease in the distal portion. 3. Left circumflex: The left circumflex is a large caliber vessel with mild diffuse disease. The very distal LCX has a 90-99% stenosis. OM-1 has a stent in its proximal portion. There is significant obstructive 90-99% ostial OM-1 disease; remainder of the vessel has mild diffuse disease. 4. Right coronary artery: The RCA is the dominant vessel. The RCA is ROUTE CARRIER in its proximal portion. There are well-formed [id number] collaterals filling the RPDA/RPLV branches. 5. Left ventricle: A. End-diastolic pressure 31 mmHg. B. LV gram deferred. C. No significant gradient across aortic valve on catheter pullback. Description of Procedure: Informed consent signed and placed in the chart. Patient transferred to confectionery laboratory manager room. Prepped and draped in usual sterile fashion. 2% lidocaine in right groin area. Micropuncture needle used to access right common femoral artery with Seldinger technique under fluoroscopic and ultrasound guidance. J wire advanced, micropuncture cannula placed. Right iliofemoral angiogram performed, access confirmed, and micropuncture cannula exchanged for 5-FR sheath. Unable to advance the J-wire into the distal aorta despite multiple attempts. Therefore, left femoral arterial access was obtained. 2% lidocaine in left groin area. Micropuncture needle used to access left common femoral artery with Seldinger technique under fluoroscopic and ultrasound guidance. J wire advanced, micropuncture cannula placed. Left iliofemoral angiogram performed, access confir
--- NOTE | 2023-02-22 22:30 | PC.NURSE ---
Heparin drip restarted at previous rate per physician order.
[2023-02-23] VITALS: BP 122/66; PULSE 59; PULSE 62; RESP 13; TEMP 36.8; O2SAT 99
[2023-02-23 02:00] VITALS: BP 124/67; PULSE 69; PULSE 70; RESP 17; O2SAT 98
[2023-02-23 03:00] VITALS: PULSE 64; RESP 15; O2SAT 97
[2023-02-23 04:00] VITALS: BP 123/66; PULSE 59; PULSE 62; RESP 14; TEMP 36.6; O2SAT 99
--- NOTE | 2023-02-23 04:39 | PC.NURSE ---
Addendum entered by Marlo Hayes RN 02/23/23 04:53: Patient left 0430 on 02/23/23 Original Note: Patient to [facility]. Room 303. Receiving nurse concha Lozoya RN. No further questions. All patient belongings gathered. Patient to E via [facility]. Unable to reach son (Mateo Moser). Sahil Andrews (on contact list) given receiving hospital information. All questions answered.
--- NOTE | 2023-02-23 10:01 | PM.TDS ---
Transfer Discharge Sum: Prov Provider Date of admission: 02/21/23 18:13 Primary care physician: Balwinder Peter, DO Admitting clinician: Nevaeh Holly MD Consults: 02/21/23 Consult to Physician Routine Comment: Consulting Provider: Michael Marquez Reason for consultation: NSTEMI Has provider been notified: Yes Consult to Physician Routine Comment: Consulting Provider: Juanjose Blake will call order clerk/MD group to consult: Hat Brim Curler Reason for consultation: Unstable angina Has provider been notified: Yes Consult to Physician Routine Comment: spoke w dr @ [phone] (, ) Consulting Provider: Padmini Garrett will call order clerk/MD group to consult: Dr. Judah Amin Reason for consultation: Stage 5 chronic kidney disease Has provider been notified: Yes DS: Admitting Diagnosis Discharge Date 02/23/23 Admitting Diagnosis Chest pain Transfer Discharge Sum: Med Medications Active and Home Medications: Home Medications aspirin 81 mg chewable tablet 81 mg PO DAILY 05/22/20 [History Confirmed 02/21/23] clopidogrel 75 mg tablet 75 mg PO DAILY 05/22/20 [History Confirmed 02/21/23] tamsulosin 0.4 mg capsule 0.4 mg PO DAILY 02/04/23 [History Confirmed 02/21/23] atorvastatin 40 mg tablet 40 mg PO DAILY #30 tabs 02/07/23 [Rx Confirmed 02/21/23] hydralazine 25 mg tablet 25 mg PO TID #90 tabs 02/07/23 [Rx Confirmed 02/21/23] isosorbide mononitrate 30 mg tablet,extended release 24 hr 30 mg PO QAM #30 tabs 02/07/23 [Rx Confirmed 02/21/23] metoprolol tartrate 25 mg tablet 12.5 mg PO BID #60 tabs 02/07/23 [Rx Confirmed 02/21/23] nitroglycerin 0.4 mg sublingual tablet (Nitrostat) 0.4 mg sublingual Q5MIN PRN Chest Pain #30 tabs 02/07/23 [Rx Confirmed 02/21/23] sodium bicarbonate 650 mg tablet 1,300 mg PO BID #120 tabs 02/07/23 [Rx Confirmed 02/21/23] amlodipine 5 mg tablet 5 mg PO DAILY 02/21/23 [History Confirmed 02/21/23] pravastatin 40 mg tablet 40 mg PO DAILY 02/21/23 [History Confirmed 02/21/23] Transfer Discharge Sum: Hosp Hospital Course Hospital course: Dayron Moser is a 77 year old male The patient presented to the ER with active chest pain.? He is having a non-STEMI/ACS.? he has history of coronary artery disease.? His initial troponin was higher than previous.? His EKG demonstrated new EKG changes compared to prior with some ST depression in anterior lateral leads.? And T-wave inversions in lead 1 and 2.? Patient is still having persistent and worsening chest pain despite nitropaste and morphine.? I contacted the sailmaker that is on for interventional services after repeat EKG demonstrated worsening changes in V3 V6 and lead 1 and 2.? The patient does have known contrast allergy and worsening stage 5 chronic kidney disease.? Subsequently patient was transferred to the ICU for nitro drip.? The patient was loaded with 600 mg of Plavix and was continued on the heparin drip that had been started in the ER.? The patient was provided with morphine q.1 hour as needed for intractable chest pain.? After titration of the nitro drip upward patient's chest pain is now down to a 1.? The patient's repeat troponin did demonstrate troponin of 6.? The patient will be made NPO at midnight.? He was given prednisone for his reported contrast allergy.? Will await further recommendations from Cardiology Services. The patient does have acute on chronic kidney disease.? The patient has had a progressive worsening of his chronic kidney disease over the last several months.? Folic patient has chronic kidney disease stage 5 not yet requiring hemodialysis.? At the time of my evaluation the patient did have a palpable bladder.? Bladder scan was performed and demonstrated almost 500 mL of urine.? When I went to re-evaluate the patient after catheter placement the patient had total 800 mL of urine output.? Will continue patient's home Flomax.? The patient would likely benefit from the additional medications for his BPH. Will monitor urine output and cr
== END 2023-02-23 04:30 | disposition short-term general hospital (02) | DRG 281 ==
LOC: ANHED 17:54 → ANHIMU 19:43 → ANHICU 23:00
PROVIDERS: Emergency Medicine; Internal Medicine; Admitting Provider Hospitalist; Emergency Provider General Practice; PCP Student in an Organized Health Care Education/Training Program; Visit Provider Internal Medicine
PROC: 4A023N7 Measurement of Cardiac Sampling and Pressure, Left Heart, Percutaneous Approach (ICD-10-PCS; CPT 93452; principal; 2023-02-22 10:00)
PROC: 4A023N7 Measurement of Cardiac Sampling and Pressure, Left Heart, Percutaneous Approach (ICD-10-PCS; CPT 36140; 2023-02-22 10:00)
DX: I21.4 Non-ST elevation (NSTEMI) myocardial infarction (principal); I13.2 Hypertensive heart and chronic kidney disease with heart failure and with stage 5 chronic kidney disease, or end stage renal disease; N18.5 Chronic kidney disease, stage 5; N17.9 Acute kidney failure, unspecified; T82.855A Stenosis of coronary artery stent, initial encounter; I50.1 Left ventricular failure, unspecified; I25.10 Atherosclerotic heart disease of native coronary artery without angina pectoris; E78.5 Hyperlipidemia, unspecified; E11.42 Type 2 diabetes mellitus with diabetic polyneuropathy; E11.22 Type 2 diabetes mellitus with diabetic chronic kidney disease; N40.1 Benign prostatic hyperplasia with lower urinary tract symptoms; R05.3 Chronic cough; R33.8 Other retention of urine; Z79.82 Long term (current) use of aspirin; Z79.02 Long term (current) use of antithrombotics/antiplatelets; Z95.5 Presence of coronary angioplasty implant and graft; Z98.49 Cataract extraction status, unspecified eye; Z85.828 Personal history of other malignant neoplasm of skin; Z90.49 Acquired absence of other specified parts of digestive tract
CPT/HCPCS: 36140; 36415; 71046; 80048; 80053; 80069; 83690; 84484; 85025; 85610; 85730; 93005; 93306; 93458; 96365; 96375; 99285; A9270; C1887; C1894; C8929; C9113; J1200; J1644; J2250; J2270; J2305; J2930; J3010; J7030; J7040; J7512